=== PATIENT | female | born 1985 | race African-American/Black ===

== ENCOUNTER 2017-02-18 09:08 | Emergency (ER) | payer MEDICAID, OTHER ==
[~2017-02-18] VITALS: Ht 162.6 cm; Wt 104.3 kg
[~2017-02-18 09:08] MED LIST: IBUPROFEN600 MG ORAL; MACROBID100 MG ORAL; NKM; PERCOCET 5-3251 EACH ORAL
[2017-02-18 09:45] LABS: APPEARANCE,URINE CLEAR; KETONES,URINE NEGATIVE (NEGATIVE); LEUKOCYTE ESTERASE ,URINE 1+ (NEGATIVE); NITRITE,URINE NEGATIVE (NEGATIVE); PH,URINE 8 (4.5-8.0); PROTEIN,URINE NEGATIVE (NEGATIVE); UROBILINOGEN,URINE 1 MG/DL (0.0-1.0)
[2017-02-18 10:00] VITALS: BP 92/53
[2017-02-18 10:33] LABS: BACTERIA,URINE FEW /HPF; RBC,URINE 0-2 /HPF (0 - 2); SQUAMOUS EPITHELIAL CELL,UR FEW /LPF (NONE/OCC); WBC,URINE 0-2 /HPF (0 - 2)
[2017-02-18] MEDS ORDERED: ROBAXIN-750750 MG PO (10:37)
[2017-02-18] MEDS ORDERED: IBUPROFEN600 MG ORAL (10:37)
[2017-02-18 10:52] VITALS: BP 103/54
--- NOTE | 2017-02-21 15:04 | Emergency Room Report ---
History of Present Illness General Chief Complaint: Back Pain-No Injury Source: Patient Present Illness HPI Patient presents with complaints of low back pain Reports that started 3 days ago She doesn't recall anything that started the pain Doesn't recall any trauma Denies any fevers or chills denies any dysuria frequency She feels the pain is worse when she sits to drive or tried to stand up Points to across her lower back for the discomfort 3 out of 10 Denies any focal weakness Denies any saddle paresthesia Allergies: Coded Allergies: No Known Allergies (Unverified , 04/08/14) Patient History Past Medical History: see triage record Pertinent Family History: none Last Menstrual Period: 01/29/17 Now: No Reviewed Nursing Documentation: PMH: Agreed, PSxH: Agreed Nursing Documentation-PMH Past Medical History: No History, Except For Hx Cancer: No Hx Gastrointestinal Problems: No Hx Neurological Problems: Yes Hx Headaches: Yes Review of Systems All Other Systems: negative except mentioned in HPI Physical Exam Vital Signs Date Time Temp Pulse Resp B/P Pulse Ox O2 Delivery O2 Flow Rate FiO2 02/18/17 09:24 97.9 82 14 92/53 99 Room Air Sp02 EP Interpretation: reviewed, normal General Appearance: well appearing, no apparent distress Head: normocephalic, atraumatic Eyes: bilateral eye EOMI, bilateral eye PERRL ENT: hearing grossly normal, normal pharynx, TMs + canals normal, uvula midline Neck: full range of motion, supple, no meningismus, no bony tend Respiratory: lungs clear, normal breath sounds, no rhonchi, no respiratory distress, no retraction, no accessory muscle use Cardiovascular #1: normal peripheral pulses, regular rate, rhythm, no edema, no gallop, no JVD, no murmur Gastrointestinal: normal bowel sounds, non tender, soft, no mass, no organomegaly, non-distended, no guarding, no hernia, no pulsatile mass, no rebound Genitourinary: no CVA tenderness Musculoskeletal: other - Mild reproducible discomfort paraspinal L3-4. No midline pain, patient ambulatory, leg raising is negative Neurologic: oriented x3, responsive, hot oiler III-XII nml as tested, motor strength/ tone normal, sensory intact Psychiatric: mood/affect normal Skin: normal color, no rash, warm/dry, palpation normal Lymphatic: normal inspection, no adenopathy Medical Decision Making Diagnostic Impression: Primary Impression: Back pain ER Course Multiple differentials considered patient however has a benign neurological exam Benign muscles focal exam Urine sample was clear And given the patient's age and lack of any risk factors close outpatient followup as initially recommended UA negative UA negative Last Vital Signs Date Time Temp Pulse Resp B/P Pulse Ox O2 Delivery O2 Flow Rate FiO2 02/18/17 10:52 97.9 75 14 103/54 99 Room Air Status: improved Disposition: HOME, SELF-CARE Condition: Stable Scripts Methocarbamol* (ROBAXIN-750*) 750 Mg Tablet 750 MG PO TID, #21 TAB 0 Refills Prov: SLOANE TURNER D.O. 02/18/17 Ibuprofen* (MOTRIN*) 600 Mg Tablet 600 MG ORAL Q8H Y for For Pain, #20 TAB 0 Refills Prov: SLOANE TURNER D.O. 02/18/17 Referrals: [facility] (PCP) Patient Instructions: Back Pain, Adult Additional Instructions: Patient is provided with the discharge instructions notified to follow up with primary doctor in the next 2-3 days otherwise return to the er with any worsening symptoms. Please note that this report is being documented using [employer] technology. This can lead to erroneous entry secondary to incorrect interpretation by the dictating instrument. SLOANE TURNER D.O. Feb 21, 2017 15:04
== END 2017-02-18 10:58 | disposition home or self-care (01) ==
LOC: EMR 09:35
DX: M54.5 Low back pain (principal)
CPT/HCPCS: 81003; 81025; 99284

== ENCOUNTER 2017-07-07 10:23 | Inpatient (IN) | payer OTHER ==
[~2017-07-07] VITALS: Ht 162.6 cm; Wt 96.2 kg
[2017-07-07] VITALS (10 sets, daily range): BP systolic 94–139; BP diastolic 56–76
[~2017-07-07 10:23] MED LIST changes: +ROBAXIN-750750 MG PO
--- NOTE | 2017-07-07 10:46 | Emergency Room Report ---
History of Present Illness General Chief Complaint: Nausea, Vomiting, and Diarrhea Source: Patient, Medical Record Present Illness HPI 32-year-old female with no sig pmhx p/w abdominal pain vomiting and diarrhea for one week. Patient states pain started after vomiting, localized to the epigastric area, non radiating, burning in nature, intermittent. No relieving or exacerbating factors. Severity is mild. Pt reports n/v, 2 episodes of nbnb vomiting (occurs every other day), 2 episodes of watery non bloody diarrhea (every other day) Denies fever, chills. No hx of abdominal surgeries. No hx of endoscopies/colonoscopies. no recent travel no recent abx use Patient also stating that she has had heavy periods all her life, about 10 pads per day and bleeding 10 days. Admits to having exertional dyspnea and fatigue. Not on any control pills Allergies: Coded Allergies: No Known Allergies (Unverified , 04/08/14) Patient History Past Medical History: see triage record Past Surgical History: none Pertinent Family History: none Last Menstrual Period: 07/01/17 Reviewed Nursing Documentation: PMH: Agreed, PSxH: Agreed Nursing Documentation-PMH Past Medical History: No History, Except For Hx Cancer: No Hx Gastrointestinal Problems: No Hx Neurological Problems: Yes Hx Headaches: Yes Review of Systems All Other Systems: negative except mentioned in HPI Physical Exam Vital Signs Date Time Temp Pulse Resp B/P (MAP) Pulse Ox O2 Delivery O2 Flow Rate FiO2 07/07/17 10:27 98.4 77 18 114/76 100 Room Air Sp02 EP Interpretation: reviewed, normal General Appearance: normal inspection, well appearing, no apparent distress, alert, GCS 15, non-toxic Head: normocephalic, atraumatic Eyes: bilateral eye normal inspection, bilateral eye PERRL, bilateral eye EOMI ENT: normal ENT inspection, normal pharynx, normal voice, moist mucus membranes Neck: normal inspection, full range of motion, supple Respiratory: normal inspection, lungs clear, normal breath sounds, no respiratory distress, no retraction, no wheezing, speaking full sentences, chest symmetrical Cardiovascular #1: normal inspection, regular rate, rhythm, no edema, normal capillary refill Cardiovascular #2: 2+ radial (R), 2+ radial (L) Gastrointestinal: soft, non-distended, no guarding, other - mild epigastric tenderness no guarding Musculoskeletal: normal inspection, back normal, normal range of motion, non- tender Neurologic: normal inspection, alert, oriented x3, responsive, motor strength/ tone normal, sensory intact, normal gait, speech normal Psychiatric: normal inspection, judgement/insight normal, memory normal Skin: normal inspection, normal color, no rash, warm/dry, well hydrated, normal turgor Medical Decision Making Diagnostic Impression: Primary Impression: Nausea, vomiting, and diarrhea Additional Impressions: Menorrhagia Symptomatic anemia ER Course 32-year-old female with abdominal pain nausea vomiting diarrhea Differential Diagnosis: Gastritis, gastroenteritis, cholecystitis, appendicitis, diverticulitis, TI/ pyelo At this time abdomen is soft nontender aside from epigastric area, not likely to have acute intra-abdominal surgical pathology, will hold CT for now. Plan: Basic labs, ua, Pepcid, maalox, pain control, IVF ER course: Patient has remained stable during ED stay. Repeat abdominal exam is nontender. Tolerating PO Pt noted to have low h/h, also admits to dyspnea/fatigue/menorrhagia with xfused 2 units first unit started in ED admit to obs Disposition: Pt will be xferred to other [facility] for insurance purposes D/W Dr Manzanares, receiving doctor, who has accepted patient Please note that this Emergency Department Report was dictated using [employer] software, occasionally this can lead to erroneous entry secondary to interpretation by the dictation equipment Laboratory Tests Test 07/07/17 10:50 White Blood Count 5.9 K/UL (4.8-10.8) Red Blood Count 4.36 M/UL (4.20-5.40) Hemoglobin 6.6 G/DL (12.0-16.0) *L Hematocrit 23.8 % (37.0-47.0) L Mean Corpuscular Volume 55 FL (80-99) L Mean Corpuscular Hemoglobin 15.2 PG (27.0-31.0) L Mean Corpuscular Hemoglobin Concent 27.8 G/DL (32.0-36.0) L Red Cell Distribution Width 16.0 % (11.6-14.8) H Platelet Count 493 K/UL (150-450) H Mean Platelet Volume 6.6 FL (6.5-10.1) Neutrophils (%) (Auto) % (45.0-75.0) Lymphocytes (%) (Auto) % (20.0-45.0) Monocytes (%) (Auto) % (1.0-10.0) Eosinophils (%) (Auto) % (0.0-3.0) Basophils (%) (Auto) % (0.0-2.0) Differential Total Cells Counted 100 Neutrophils % (Manual) 62 % (45-75) Lymphocytes % (Manual) 23 % (20-45) Monocytes % (Manual) 11 % (1-10) H Eosinophils % (Manual) 4 % (0-3) H Basophils % (Manual) 0 % (0-2) Band Neutrophils 0 % (0-8) Platelet Estimate Adequate Platelet Morphology Normal Hypochromasia 2+ Anisocytosis 1+ Microcytosis 3+ Urine Color Pale yellow Urine Appearance Clear Urine pH 6 (4.5-8.0) Urine Specific [place] 1.010 (1.005-1.035) Urine Protein Negative (NEGATIVE) Urine Glucose (UA) Negative (NEGATIVE) Urine Ketones Negative (NEGATIVE) Urine Occult Blood 1+ (NEGATIVE) H Urine Nitrite Negative (NEGATIVE) Urine Bilirubin Negative (NEGATIVE) Urine Urobilinogen Normal MG/DL (0.0-1.0) Urine Leukocyte Esterase 1+ (NEGATIVE) H Urine RBC 0-2 /HPF (0 - 2) Urine WBC 2-4 /HPF (0 - 2) Urine Squamous Epithelial Cells Few /LPF (NONE/OCC) Urine Bacteria Few /HPF (NONE) Urine HCG, Qualitative Negative Sodium Level 138 MMOL/L (136-145) Potassium Level 3.6 MMOL/L (3.5-5.1) Chloride Level 105 MMOL/L (98-107) Carbon Dioxide Level 23 MMOL/L (21-32) Anion Gap 10 mmol/L (5-15) Blood Urea Nitrogen 4 mg/dL (7-18) L Creatinine 0.8 MG/DL (0.55-1.30) Estimate Glomerular Filtration Rate > 60 mL/min (>60) Glucose Level 87 MG/DL (74-106) Calcium Level 9.3 MG/DL (8.5-10.1) Total Bilirubin 0.4 MG/DL (0.2-1.0) Aspartate Amino Transferase (AST) 13 U/L (15-37) L Alanine Aminotransferase (ALT) 13 U/L (12-78) Alkaline Phosphatase 58 U/L (46-116) Total Protein 7.9 G/DL (6.4-8.2) Albumin 3.8 G/DL (3.4-5.0) Globulin 4.1 g/dL Albumin/Globulin Ratio 0.9 (1.0-2.7) L Lipase 116 U/L (73-393) Last Vital Signs Date Time Temp Pulse Resp B/P (MAP) Pulse Ox O2 Delivery O2 Flow Rate FiO2 07/07/17 10:27 98.4 77 18 114/76 100 Room Air Disposition: XFER [facility] Condition: Serious RetinoLuther M.D. Jul 07, 2017 10:46
[2017-07-07] MEDS ORDERED: Dicyclomine HCl 10mg/5ml oral soln ORAL ONE (11:00)
[2017-07-07] MEDS ORDERED: Lidocaine 2% Visc 15ml soln ORAL ONE (11:00)
[2017-07-07] MEDS ORDERED: Mylanta II UD 30ml ORAL ONE (11:00)
[2017-07-07 11:08] LABS: APPEARANCE,URINE CLEAR; KETONES,URINE NEGATIVE (NEGATIVE); LEUKOCYTE ESTERASE ,URINE 1+ (NEGATIVE); MEAN CORPUSCULAR HEMOGLOBIN 15.2 PG (27.0-31.0); MEAN CORPUSCULAR HGB CONC 27.8 G/DL (32.0-36.0); MEAN CORPUSCULAR VOLUME 55 FL (80-99); MEAN PLATELET VOLUME 6.6 FL (6.5-10.1); NITRITE,URINE NEGATIVE (NEGATIVE); PH,URINE 6 (4.5-8.0); PLATELET COUNT 493 K/UL (150-450); PROTEIN,URINE NEGATIVE (NEGATIVE); RED BLOOD COUNT 4.36 M/UL (4.20-5.40); UROBILINOGEN,URINE NORMAL MG/DL (0.0-1.0); WHITE BLOOD COUNT 5.9 K/UL (4.8-10.8)
[2017-07-07 11:13] LABS: BACTERIA,URINE FEW /HPF; RBC,URINE 0-2 /HPF (0 - 2); SQUAMOUS EPITHELIAL CELL,UR FEW /LPF (NONE/OCC)
[2017-07-07 11:30] LABS: ALANINE AMINOTRANSFERASE 13 U/L (12-78); ALBUMIN/GLOBULIN RATIO 0.9 (1.0-2.7); ANION GAP 10 mmol/L (5-15); ASPARTATE AMINO TRANSFERASE 13 U/L (15-37); CALCIUM 9.3 MG/DL (8.5-10.1); CARBON DIOXIDE 23 MMOL/L (21-32); CHLORIDE 105 MMOL/L (98-107); CREATININE 0.8 MG/DL (0.55-1.30); GLOMERULAR FILTRATION RATE > 60 mL/min (>60); LIPASE 116 U/L (73-393); POTASSIUM 3.6 MMOL/L (3.5-5.1); SODIUM 138 MMOL/L (136-145); TOTAL PROTEIN 7.9 G/DL (6.4-8.2)
[2017-07-07 12:02] LABS: BAND NEUTROPHILS % (MANUAL) 0 % (0-8); BASOPHILS % (MANUAL) 0 % (0-2); EOSINOPHILS % (MANUAL) 4 % (0-3); LYMPHOCYTES % (MANUAL) 23 % (20-45); NEUTROPHILS % (MANUAL) 62 % (45-75); PLATELET ESTIMATE ADEQUATE; TOTAL CELLS COUNTED 100
[2017-07-07 12:03] LABS: ANISOCYTOSIS 1+; HYPOCHROMASIA 2+; MICROCYTES 3+; PLATELET MORPHOLOGY NORMAL
[2017-07-07] MEDS ORDERED: Ketorolac 30mg Inj IV ONE (16:45)
[2017-07-07] MEDS ORDERED: Mylanta II UD 30ml ORAL PRN (21:30)
[2017-07-07] MEDS ORDERED: Zolpidem 5mg tab ORAL PRN (21:30)
[2017-07-07] MEDS ORDERED: Miralax 17gm pkt ORAL PRN (21:30)
[2017-07-08] VITALS: BP 132/75
[2017-07-08 00:11] LABS: LACTATE DEHYDROGENASE 188 U/L (81-234)
[2017-07-08 00:20] LABS: PROTHROMBIN TIME 10.8 SEC (9.30-11.50)
[2017-07-08 00:25] LABS: PATH BLOOD SMEAR/OMC SENT TO PATHOLOGIST
[2017-07-08 00:42] LABS: FOLIC ACID 11.8 NG/ML (3.1-17.5); IRON 6 ug/dL (50-175); TOTAL IRON BINDING CAPACITY 371 ug/dL (250-450)
[2017-07-08 01:29] LABS: ERYTHROCYTE SEDIMENTATION RATE 35 MM/HR (0-20)
[2017-07-08 04:45] VITALS: BP 127/69
[2017-07-08 08:00] VITALS: BP 134/77
[2017-07-08 08:58] LABS: BASOPHILS % (AUTO) 2.7 % (0.0-2.0); LYMPHOCYTES % (AUTO) 16.6 % (20.0-45.0); MEAN CORPUSCULAR HEMOGLOBIN 18.4 PG (27.0-31.0); MEAN CORPUSCULAR HGB CONC 30.3 G/DL (32.0-36.0); MEAN CORPUSCULAR VOLUME 61 FL (80-99); MEAN PLATELET VOLUME 6.4 FL (6.5-10.1); MONOCYTES % (AUTO) 13.1 % (1.0-10.0); NEUTROPHILS % (AUTO) 63.6 % (45.0-75.0); PLATELET COUNT 464 K/UL (150-450); RED BLOOD COUNT 4.87 M/UL (4.20-5.40); RED CELL DISTRIBUTION WIDTH 25.4 % (11.6-14.8); WHITE BLOOD COUNT 7.4 K/UL (4.8-10.8)
[2017-07-08 09:50] LABS: OTHERS PATHOLOGIST COMMENT
[2017-07-08 10:18] LABS: ALANINE AMINOTRANSFERASE 15 U/L (12-78); ANION GAP 8 mmol/L (5-15); ASPARTATE AMINO TRANSFERASE 14 U/L (15-37); CALCIUM 9.1 MG/DL (8.5-10.1); CARBON DIOXIDE 26 MMOL/L (21-32); CHLORIDE 104 MMOL/L (98-107); CREATININE 0.8 MG/DL (0.55-1.30); GLOMERULAR FILTRATION RATE > 60 mL/min (>60); POTASSIUM 3.5 MMOL/L (3.5-5.1); SODIUM 138 MMOL/L (136-145); THYROID STIMULATING HORMONE 1.885 uiU/mL (0.360-3.740); TOTAL PROTEIN 7.5 G/DL (6.4-8.2)
--- NOTE | 2017-07-08 11:42 | History and Physical ---
History of Present Illness General Date patient seen: Jul 08, 2017 Time patient seen: 10:00 Reason for Hospitalization: Nausea, Vomiting, and Diarrhea Present Illness HPI 32 y/old female with 1 week of foul smelling, dark color diarrhea, no alejandrina blood, + vomiting, no hematemesis, yellow color unable to keep food and water down + abdominal cramps no fevers, chills No hx of abdominal surgeries. No hx of endoscopies/colonoscopies. no recent travel no recent abx use doubt any food poisoning, no recent sick contacts Patient also reported heavy periods all her life, about 10 pads per day and bleeding 10 days. reported exertional dyspnea and fatigue. Not on any control pills engaged, 4 children smokes marijuana daily workup in ED revealed HH-6.6/23.8 with MCV 55 VSS no fever, pulse oz stable on RA no leukocytosis , stable lytes, LFT urine test negative LMP -07/01/17 patient admitted for blood transfusion and further management Allergies: Coded Allergies: No Known Allergies (Unverified , 04/08/14) Medication History Scheduled Methocarbamol* (Robaxin-750*), 750 MG PO TID Nitrofurantoin Monohyd/M-Cryst (Nitrofurantoin [place]-Mcr 100 mg), 100 MG ORAL Q12H No Known Medications* (NKM - No Known Medications*), 0 ., (Reported) Scheduled PRN Ibuprofen* (Motrin*), 600 MG ORAL Q6H PRN for For Pain, (Reported) Ibuprofen* (Motrin*), 600 MG ORAL Q8H PRN for For Pain Oxycodone/Acetaminophen 5-325* (Percocet 5-325 Mg Tablet*), 1 TAB ORAL Q6H PRN for For Pain, (Reported) Patient History Healthcare decision maker N Resuscitation status Full Code Advanced Directive on File Review of Systems Constitutional: Reports: no symptoms ENT: Reports: no symptoms Respiratory: Reports: no symptoms Cardiovascular: Reports: no symptoms Gastrointestinal: Reports: see HPI Genitourinary: Reports: see HPI Musculoskeletal: Reports: no symptoms Skin: Reports: no symptoms Psychiatric: Reports: no symptoms Neurological: Reports: no symptoms Endocrine: Reports: no symptoms Physical Exam General Appearance: WD/WN, no apparent distress, alert, obese Lines, tubes and drains: peripheral HEENT: normocephalic, atraumatic, anicteric, mucous membranes moist, PERRL Neck: non-tender, supple Respiratory/Chest: chest wall non-tender, lungs clear, normal breath sounds, no respiratory distress, no accessory muscle use Cardiovascular/Chest: normal peripheral pulses, normal rate Abdomen: non tender - obese, soft Extremities: normal range of motion, non-tender, no calf tenderness, normal capillary refill Skin Exam: warm/dry Neurologic: glass deposition tender II-XII grossly normal, no motor/sensory deficits, alert, oriented x 3, responsive Musculoskeletal: normal muscle bulk Last 24 Hour Vital Signs Date Time Temp Pulse Resp B/P (MAP) Pulse Ox O2 Delivery O2 Flow Rate FiO2 07/08/17 04:45 97.9 60 18 127/69 100 Room Air 07/08/17 00:00 98.2 60 18 132/75 99 Room Air 07/07/17 20:50 98.1 69 18 139/74 98 Room Air 07/07/17 20:20 98.3 58 19 122/64 99 Room Air 07/07/17 20:11 98.3 58 19 122/64 99 Room Air 07/07/17 18:10 98.5 63 16 126/75 99 Room Air 07/07/17 15:48 98.3 74 16 103/61 100 Room Air 07/07/17 15:33 98.3 70 18 111/65 100 Room Air 07/07/17 15:33 98.3 70 18 07/07/17 15:22 98.2 76 16 94/70 100 Room Air 07/07/17 14:40 98.2 66 16 125/68 100 Room Air 07/07/17 13:28 98.2 64 18 119/64 100 Room Air 07/07/17 12:08 66 18 114/56 100 Room Air Laboratory Tests Test 07/07/17 21:50 07/08/17 07:20 07/08/17 08:20 Erythrocyte Sedimentation Rate 35 MM/HR (0-20) H Reticulocyte Count 2.0 % (0.0-2.0) Prothrombin Time 10.8 SEC (9.30-11.50) Prothromb Time International Ratio 1.0 (0.9-1.1) Activated Partial Thromboplast Time 29 SEC (23-33) Iron Level 6 ug/dL (50-175) L Total Iron Binding Capacity 371 ug/dL (250-450) Percent Iron Saturation 2 % (15-50) L Unsaturated Iron Binding 365 ug/dL (112-346) H Lactate Dehydrogenase 188 U/L (81-234) Vitamin B12 Level 529 PG/ML (193-986) Folate 11.8 NG/ML (3.1-17.5) Stool Occult Blood Negative (NEGATIVE) White Blood Count 7.4 K/UL (4.8-10.8) Red Blood Count 4.87 M/UL (4.20-5.40) Hemoglobin 9.0 G/DL (12.0-16.0) #L Hematocrit 29.6 % (37.0-47.0) L Mean Corpuscular Volume 61 FL (80-99) #L Mean Corpuscular Hemoglobin 18.4 PG (27.0-31.0) L Mean Corpuscular Hemoglobin Concent 30.3 G/DL (32.0-36.0) L Red Cell Distribution Width 25.4 % (11.6-14.8) H Platelet Count 464 K/UL (150-450) H Mean Platelet Volume 6.4 FL (6.5-10.1) L Neutrophils (%) (Auto) 63.6 % (45.0-75.0) Lymphocytes (%) (Auto) 16.6 % (20.0-45.0) L Monocytes (%) (Auto) 13.1 % (1.0-10.0) H Eosinophils (%) (Auto) 4.0 % (0.0-3.0) H Basophils (%) (Auto) 2.7 % (0.0-2.0) H Sodium Level 138 MMOL/L (136-145) Potassium Level 3.5 MMOL/L (3.5-5.1) Chloride Level 104 MMOL/L (98-107) Carbon Dioxide Level 26 MMOL/L (21-32) Anion Gap 8 mmol/L (5-15) Blood Urea Nitrogen 8 mg/dL (7-18) Creatinine 0.8 MG/DL (0.55-1.30) Estimat Glomerular Filtration Rate > 60 mL/min (>60) Glucose Level 100 MG/DL (74-106) Calcium Level 9.1 MG/DL (8.5-10.1) Total Bilirubin 0.5 MG/DL (0.2-1.0) Aspartate Amino Transf (AST/SGOT) 14 U/L (15-37) L Alanine Aminotransferase (ALT/SGPT) 15 U/L (12-78) Alkaline Phosphatase 61 U/L (46-116) Total Protein 7.5 G/DL (6.4-8.2) Albumin 3.7 G/DL (3.4-5.0) Globulin 3.8 g/dL Albumin/Globulin Ratio 1.0 (1.0-2.7) Thyroid Stimulating Hormone (TSH) 1.885 uiU/mL (0.360-3.740) Height (Feet): 5 Height (Inches): 4.00 Weight (Pounds): 212 Medications Current Medications Medications (Trade) Dose Ordered Sig/Lilliana Route PRN Reason Start Time Stop Time Status Last Admin Dose Admin Acetaminophen (Tylenol) 650 mg Q4H PRN ORAL fever 07/07/17 21:30 08/06/17 21:29 Al Hydroxide/Mg Hydroxide (Mylanta II) 30 ml Q6H PRN ORAL dyspepsia 07/07/17 21:30 08/06/17 21:29 Dextrose (Dextrose 50%) STAT PRN IV Hypoglycemia 07/07/17 21:30 08/06/17 21:29 Lorazepam (Ativan 2mg/ml 1ml) 0.5 mg Q4H PRN IV For Anxiety 07/07/17 21:30 07/14/17 21:29 Morphine Sulfate (Morphine Sulfate) 1 mg Q4H PRN IVP For Pain Scale 4-10 07/07/17 21:30 07/14/17 21:29 Ondansetron HCl (Zofran) 4 mg Q6H PRN IVP Nausea & Vomiting 07/07/17 21:30 08/06/17 21:29 07/08/17 04:17 Polyethylene Glycol (Miralax) 17 gm HSPRN PRN ORAL Constipation 07/07/17 21:30 08/06/17 21:29 Zolpidem Tartrate (Ambien) 5 mg HSPRN PRN ORAL Insomnia 07/07/17 21:30 07/14/17 21:29 Assessment/Plan Status Narrative ASSESSMENT nausea with vomiting and diarrhea acute symptomatic anemia, requiring blood transfusion iron deficiency anemia obesity daily marijuana user PLAN OF CARE MS floor s/p 2 u PRBC, HH up anemia w/up with evidence of ALLYSON start Venofer check ferritin on dc oral iron supplements IVF diet as tolerated O2 prn GI eval a/emetic prn stool OP, C dif and stool cx with no fever, no leukocytosis, unlikely infectious source of diarrhea, GI prophayxlis stool OB [facility] outpt fup with [employer] case discussed and evaluated by supervising physician Richard Thomas)Abby NP Jul 08, 2017 11:42
[2017-07-08 12:17] VITALS: BP 130/80
[2017-07-08 16:00] VITALS: BP 142/83
--- NOTE | 2017-07-08 17:01 | GI Initial Consult Note ---
History of Present Illness General Date patient seen: Jul 08, 2017 Time patient seen: 16:57 Reason for Hospitalization: Nausea, Vomiting, and Diarrhea Referring physician: CHARLES CALDERON Reason for Consultation: N/V/D Present Illness HPI 32-year-old female with no sig pmhx p/w abdominal pain vomiting and diarrhea for one week. Patient states pain started after vomiting, localized to the epigastric area, non radiating, burning in nature, intermittent. No relieving or exacerbating factors. Severity is mild. Pt reports n/v, 2 episodes of nbnb vomiting (occurs every other day), 2 episodes of watery non bloody diarrhea (every other day) Denies fever, chills. No hx of abdominal surgeries. No hx of endoscopies/colonoscopies. no recent travel no recent abx use Patient also stating that she has had heavy periods all her life, about 10 pads per day and bleeding 10 days. Admits to having exertional dyspnea and fatigue. Not on any control pills. GI consulted for abdominal pain. HPI as noted above. Pt seen on floor, awake A &Ox4 NAD with no active s/sx of N/V/D. States she's been having epigastric pain , multiple episodes to emesis and water diarrhea. Denies any unintentional weight loss or changes in dietary habits. Denies any recent travel. Pt has documented history of thalassemia but is unsure because she has been told she has had thalassemia, sickle cell and iron deficiency. Patient denies tobacco and ETOH use, but is a daily MJ user. Patient also has history of ectopic . She presents today with anemia requiring blood transfusions, iron deficiency. No leukocytosis noted. Lipase, OB stool unremarkable. Home Meds Active Scripts Methocarbamol* (ROBAXIN-750*) 750 Mg Tablet, 750 MG PO TID, #21 TAB 0 Refills Prov:LARSDORSLOANE D.O. 02/18/17 Ibuprofen* (MOTRIN*) 600 Mg Tablet, 600 MG ORAL Q8H Y for For Pain, #20 TAB 0 Refills Prov:LARSDORALI D.O. 02/18/17 Nitrofurantoin Monohyd/M-Cryst (Nitrofurantoin Haskell-Mcr 100 mg) 100 Mg Cap, 100 MG ORAL Q12H, #14 CAP Prov:SLOANE TURNER D.O. 12/12/14 Reported Medications Ibuprofen* (MOTRIN*) 600 Mg Tablet, 600 MG ORAL Q6H Y for For Pain, TAB 04/18/14 Oxycodone/Acetaminophen 5-325* (PERCOCET 5-325 MG TABLET*) 1 Each Tablet, 1 TAB ORAL Q6H Y for For Pain, #30 TAB 0 Refills 04/18/14 No Known Medications* (NKM - No Known Medications*) ., 0 ., 0 Refills 04/16/14 Med list reviewed/reconciled: Yes Allergies: Coded Allergies: No Known Allergies (Unverified , 04/08/14) Patient History History Provided By: Patient, Medical Record PMH Narrative Past Medical History: see triage record Past Surgical History: none Pertinent Family History: none Last Menstrual Period: 07/01/17 Reviewed Nursing Documentation: PMH: Agreed, PSxH: Agreed Nursing Documentation-PM Past Medical History: No History, Except For Hx Cancer: No Hx Gastrointestinal Problems: No Hx Neurological Problems: Yes Hx Headaches: Yes Social History: Reports: drug use - Review of Systems All Other Systems: negative except mentioned in HPI Physical Exam Vital Signs Date Time Temp Pulse Resp B/P (MAP) Pulse Ox O2 Delivery O2 Flow Rate FiO2 07/07/17 10:27 18 114/76 100 Room Air 07/07/17 10:27 98.4 77 Sp02 EP Interpretation: reviewed, normal Labs Laboratory Tests Test 07/07/17 21:50 07/08/17 07:20 07/08/17 08:20 Erythrocyte Sedimentation Rate 35 MM/HR (0-20) H Reticulocyte Count 2.0 % (0.0-2.0) Prothrombin Time 10.8 SEC (9.30-11.50) Prothromb Time International Ratio 1.0 (0.9-1.1) Activated Partial Thromboplast Time 29 SEC (23-33) Iron Level 6 ug/dL (50-175) L Total Iron Binding Capacity 371 ug/dL (250-450) Percent Iron Saturation 2 % (15-50) L Unsaturated Iron Binding 365 ug/dL (112-346) H Lactate Dehydrogenase 188 U/L (81-234) Vitamin B12 Level 529 PG/ML (193-986) Folate 11.8 NG/ML (3.1-17.5) Stool Occult Blood Negative (NEGATIVE) White Blood Count 7.4 K/UL (4.8-10.8) Red Blood Count 4.87 M/UL (4.20-5.40) Hemoglobin 9.0 G/DL (12.0-16.0) #L Hematocrit 29.6 % (37.0-47.0) L Mean Corpuscular Volume 61 FL (80-99) #L Mean Corpuscular Hemoglobin 18.4 PG (27.0-31.0) L Mean Corpuscular Hemoglobin Concent 30.3 G/DL (32.0-36.0) L Red Cell Distribution Width 25.4 % (11.6-14.8) H Platelet Count 464 K/UL (150-450) H Mean Platelet Volume 6.4 FL (6.5-10.1) L Neutrophils (%) (Auto) 63.6 % (45.0-75.0) Lymphocytes (%) (Auto) 16.6 % (20.0-45.0) L Monocytes (%) (Auto) 13.1 % (1.0-10.0) H Eosinophils (%) (Auto) 4.0 % (0.0-3.0) H Basophils (%) (Auto) 2.7 % (0.0-2.0) H Sodium Level 138 MMOL/L (136-145) Potassium Level 3.5 MMOL/L (3.5-5.1) Chloride Level 104 MMOL/L (98-107) Carbon Dioxide Level 26 MMOL/L (21-32) Anion Gap 8 mmol/L (5-15) Blood Urea Nitrogen 8 mg/dL (7-18) Creatinine 0.8 MG/DL (0.55-1.30) Estimat Glomerular Filtration Rate > 60 mL/min (>60) Glucose Level 100 MG/DL (74-106) Calcium Level 9.1 MG/DL (8.5-10.1) Total Bilirubin 0.5 MG/DL (0.2-1.0) Aspartate Amino Transf (AST/SGOT) 14 U/L (15-37) L Alanine Aminotransferase (ALT/SGPT) 15 U/L (12-78) Alkaline Phosphatase 61 U/L (46-116) Total Protein 7.5 G/DL (6.4-8.2) Albumin 3.7 G/DL (3.4-5.0) Globulin 3.8 g/dL Albumin/Globulin Ratio 1.0 (1.0-2.7) Thyroid Stimulating Hormone (TSH) 1.885 uiU/mL (0.360-3.740) General Appearance: well appearing, no apparent distress, alert, obese Head: normocephalic EENT: PERRL/EOMI, normal ENT inspection Neck: supple Respiratory: normal breath sounds, no respiratory distress Cardiovascular: normal rate Gastrointestinal: normal inspection, non tender, soft, normal bowel sounds, non -distended Rectal: deferred Genitourinary: no CVA tenderness Musculoskeletal: normal inspection, back normal Neurologic: normal inspection, alert, oriented x3, responsive Psychiatric: normal inspection, judgement/insight normal, memory normal Skin: normal inspection, normal color, no rash, warm/dry, palpation normal, well hydrated Lymphatic: normal inspection, no adenopathy Current Medications Current Medications Medications (Trade) Dose Ordered Sig/Lilliana Route PRN Reason Start Time Stop Time Status Last Admin Dose Admin Acetaminophen (Tylenol) 650 mg Q4H PRN ORAL fever 07/07/17 21:30 08/06/17 21:29 Al Hydroxide/Mg Hydroxide (Mylanta II) 30 ml Q6H PRN ORAL dyspepsia 07/07/17 21:30 08/06/17 21:29 Dextrose (Dextrose 50%) STAT PRN IV Hypoglycemia 07/07/17 21:30 08/06/17 21:29 Iron Sucrose 100 mg/Sodium Chloride 60 ml @ 240 mls/hr ONCE ONCE IV 07/08/17 21:00 07/08/17 21:14 Lorazepam (Ativan 2mg/ml 1ml) 0.5 mg Q4H PRN IV For Anxiety 07/07/17 21:30 07/14/17 21:29 Morphine Sulfate (Morphine Sulfate) 1 mg Q4H PRN IVP For Pain Scale 4-10 07/07/17 21:30 07/14/17 21:29 Ondansetron HCl (Zofran) 4 mg Q6H PRN IVP Nausea & Vomiting 07/07/17 21:30 08/06/17 21:29 07/08/17 04:17 Polyethylene Glycol (Miralax) 17 gm HSPRN PRN ORAL Constipation 07/07/17 21:30 08/06/17 21:29 Ranitidine HCl (Zantac) 150 mg BEDTIME ORAL 07/08/17 21:00 08/07/17 20:59 Sodium Chloride 1,000 ml @ 75 mls/hr [id number] IV 07/08/17 17:00 08/07/17 16:59 07/08/17 16:54 Zolpidem Tartrate (Ambien) 5 mg HSPRN PRN ORAL Insomnia 07/07/17 21:30 07/14/17 21:29 GI: Plan Problems: (1) Iron deficiency (2) Symptomatic anemia (3) Nausea, vomiting, and diarrhea Plan lipase WNL OB stool negative fu AP CT fu cdiff, stool studies, O&P >> ok for Imodium after samples collected fu utox regular diet zofran prn, consider reglan if patient has persistent vomiting monitor H&H, prn transfusions H2B fu labs consider cyclic vomiting syndrom given hx of daily MJ use Discussed with Dr. Urrutia. Thank you for this patient referral, we will follow. Holley Carcamo N.P. Jul 08, 2017 17:01
[2017-07-08] MEDS ORDERED: Loperamide 2mg cap ORAL PRN (17:15)
[2017-07-08] MEDS ORDERED: Metoclopramide 10mg/2ml Inj IVP PRN (19:30)
[2017-07-08 20:00] VITALS: BP 130/83
[2017-07-08] MEDS: Metoclopramide 10mg/2ml Inj IVP PRN (20:14)
[2017-07-08] MEDS: Morphine Sulfate 4mg/ml Inj IVP PRN (20:20)
[2017-07-08] MEDS ORDERED: Iron Sucrose 100 MG in NS 55 ML IV ONE (21:00)
[2017-07-09] VITALS: BP 153/83
[2017-07-09] MEDS: Morphine Sulfate 4mg/ml Inj IVP PRN (00:25)
[2017-07-09] MEDS: LORazepam Inj 2mg/ml 1ml IV PRN ×4 (01:19→20:34)
[2017-07-09 04:00] VITALS: BP 119/63
[2017-07-09 07:29] LABS: BASOPHILS % (AUTO) 0.6 % (0.0-2.0); EOSINOPHILS % (AUTO) 0.8 % (0.0-3.0); LYMPHOCYTES % (AUTO) 16.6 % (20.0-45.0); MEAN CORPUSCULAR HEMOGLOBIN 18.1 PG (27.0-31.0); MEAN CORPUSCULAR HGB CONC 29.9 G/DL (32.0-36.0); MEAN CORPUSCULAR VOLUME 61 FL (80-99); MEAN PLATELET VOLUME 6.9 FL (6.5-10.1); MONOCYTES % (AUTO) 7.8 % (1.0-10.0); NEUTROPHILS % (AUTO) 74.2 % (45.0-75.0); PLATELET COUNT 448 K/UL (150-450); RED BLOOD COUNT 4.69 M/UL (4.20-5.40); RED CELL DISTRIBUTION WIDTH 25.9 % (11.6-14.8); WHITE BLOOD COUNT 8.2 K/UL (4.8-10.8)
[2017-07-09 07:47] LABS: ANION GAP 9 mmol/L (5-15); CALCIUM 9.2 MG/DL (8.5-10.1); CARBON DIOXIDE 26 MMOL/L (21-32); CHLORIDE 107 MMOL/L (98-107); CREATININE 0.8 MG/DL (0.55-1.30); FERRITIN 13 NG/ML (8-388); GLOMERULAR FILTRATION RATE > 60 mL/min (>60); POTASSIUM 3.6 MMOL/L (3.5-5.1); SODIUM 142 MMOL/L (136-145)
--- NOTE | 2017-07-09 08:04 | Pulmonology Progress Note ---
Assessment/Plan Assessment/Plan ASSESSMENT nausea with vomiting and diarrhea acute symptomatic anemia, requiring blood transfusion iron deficiency anemia obesity possible cyclic vomiting syndrome daily marijuana user PLAN OF CARE MS floor s/p 2 u PRBC, HH up anemia w/up with evidence of ALLYSON continue Venofer on dc oral iron supplements IVF GI eval appreciated CT A/P pending diet as tolerated a/emetic prn O2 prn stool OP, and stool cx stool C dif negative with no fever, no leukocytosis, unlikely infectious source of diarrhea, GI prophayxlis stool OB CEA heme eval outpt fup with [employer] FELLOWSHIP not tolerating diet, ? cyclic vomiting syndrome case discussed and evaluated by supervising physician Subjective Allergies: Coded Allergies: No Known Allergies (Unverified , 04/08/14) Subjective not tolerating diet, vomited dinner last night this am only drink water and juice stable patient reported that she was told in the past she had sickle cell or thalassemia Objective Last 24 Hour Vital Signs Date Time Temp Pulse Resp B/P (MAP) Pulse Ox O2 Delivery O2 Flow Rate FiO2 07/09/17 04:00 97.5 50 21 119/63 100 Room Air 07/09/17 00:00 97.9 58 20 153/83 100 Room Air 07/08/17 20:00 97.3 59 20 130/83 100 Room Air 07/08/17 16:00 98.8 69 16 142/83 100 07/08/17 12:17 97.7 56 20 130/80 100 Room Air Objective General Appearance: WD/WN, no apparent distress, alert, obese Lines, tubes and drains: peripheral HEENT: normocephalic, atraumatic, anicteric, mucous membranes moist, PERRL Neck: non-tender, supple Respiratory/Chest: chest wall non-tender, lungs clear, normal breath sounds, no respiratory distress, no accessory muscle use Cardiovascular/Chest: normal peripheral pulses, normal rate Abdomen: non tender, obese, soft Extremities: normal range of motion, non-tender, no calf tenderness, normal capillary refill Skin Exam: warm/dry 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, no motor/sensory deficits, alert, oriented x 3, responsive Musculoskeletal: normal muscle bulk Microbiology Date/Time Source Procedure Growth Status 07/08/17 07:20 Stool Clostridium difficile Toxin Assay - Final Complete Laboratory Tests 07/08/17 08:20: White Blood Count 7.4, Red Blood Count 4.87, Hemoglobin 9.0#L, Hematocrit 29.6L , Mean Corpuscular Volume 61#L, Mean Corpuscular Hemoglobin 18.4L, Mean Corpuscular Hemoglobin Concent 30.3L, Red Cell Distribution Width 25.4H, Platelet Count 464H, Mean Platelet Volume 6.4L, Neutrophils (%) (Auto) 63.6, Lymphocytes (%) (Auto) 16.6L, Monocytes (%) (Auto) 13.1H, Eosinophils (%) (Auto ) 4.0H, Basophils (%) (Auto) 2.7H, Sickle Cell Screen [Pending], Hemoglobin A [ Pending], Hemoglobin A2 [Pending], Hemoglobin C [Pending], Hemoglobin F () [Pending], Hemoglobin S [Pending], Variant Hemoglobin [Pending], Hemoglobin Electrophoresis Interp [Pending], Hemoglobin Interpretation [Pending], Hemoglobin Solubility [Pending], Sodium Level 138, Potassium Level 3.5, Chloride Level 104, Carbon Dioxide Level 26, Anion Gap 8, Blood Urea Nitrogen 8 , Creatinine 0.8, Estimat Glomerular Filtration Rate > 60, Glucose Level 100, Calcium Level 9.1, Total Bilirubin 0.5, Aspartate Amino Transf (AST/SGOT) 14L, Alanine Aminotransferase (ALT/SGPT) 15, Alkaline Phosphatase 61, Total Protein 7.5, Albumin 3.7, Globulin 3.8, Albumin/Globulin Ratio 1.0, Thyroid Stimulating Hormone (TSH) 1.885 07/08/17 23:30: Stool Occult Blood [Pending] 07/09/17 05:10: White Blood Count 8.2, Red Blood Count 4.69, Hemoglobin 8.5L, Hematocrit 28.5L, Mean Corpuscular Volume 61L, Mean Corpuscular Hemoglobin 18.1L, Mean Corpuscular Hemoglobin Concent 29.9L, Red Cell Distribution Width 25.9H, Platelet Count 448, Mean Platelet Volume 6.9, Neutrophils (%) (Auto) 74.2, Lymphocytes (%) (Auto) 16.6L, Monocytes (%) (Auto) 7.8, Eosinophils (%) (Auto) 0.8, Basophils (%) (Auto) 0.6, Sodium Level 142, Potassium Level 3.6, Chloride Level 107, Carbon Dioxide Level 26, Anion Gap 9, Blood Urea Nitrogen 5L, Creatinine 0.8, Estimat Glomerular Filtration Rate > 60, Glucose Level 80, Calcium Level 9.2, Ferritin 13 Current Medications Medications (Trade) Dose Ordered Sig/Lilliana Route PRN Reason Start Time Stop Time Status Last Admin Dose Admin Acetaminophen (Tylenol) 650 mg Q4H PRN ORAL fever 07/07/17 21:30 08/06/17 21:29 Al Hydroxide/Mg Hydroxide (Mylanta II) 30 ml Q6H PRN ORAL dyspepsia 07/07/17 21:30 08/06/17 21:29 Dextrose (Dextrose 50%) STAT PRN IV Hypoglycemia 07/07/17 21:30 08/06/17 21:29 Loperamide HCl (Imodium) 2 mg Q4H PRN ORAL Diarrhea 07/08/17 17:15 08/07/17 17:14 Lorazepam (Ativan 2mg/ml 1ml) 0.5 mg Q4H PRN IV For Anxiety 07/07/17 21:30 07/14/17 21:29 07/09/17 01:19 Metoclopramide HCl (Reglan) 5 mg Q8H PRN IVP Nausea & Vomiting 07/08/17 19:30 08/07/17 19:29 07/08/17 20:14 Morphine Sulfate (Morphine Sulfate) 1 mg Q4H PRN IVP For Pain Scale 4-10 07/07/17 21:30 07/14/17 21:29 07/09/17 00:25 Ondansetron HCl (Zofran) 4 mg Q6H PRN IVP Nausea & Vomiting 07/07/17 21:30 08/06/17 21:29 07/08/17 23:43 Polyethylene Glycol (Miralax) 17 gm HSPRN PRN ORAL Constipation 07/07/17 21:30 08/06/17 21:29 Ranitidine HCl (Zantac) 150 mg BEDTIME ORAL 07/08/17 21:00 08/07/17 20:59 07/08/17 20:15 Sodium Chloride 1,000 ml @ 75 mls/hr [id number] IV 07/08/17 17:00 08/07/17 16:59 07/09/17 06:33 Zolpidem Tartrate (Ambien) 5 mg HSPRN PRN ORAL Insomnia 07/07/17 21:30 07/14/17 21:29 Richard (Lanliliana)Abby NP Jul 09, 2017 08:04
[2017-07-09 08:43] VITALS: BP 127/67
[2017-07-09] MEDS ORDERED: Iron Sucrose 100 MG in NS 55 ML IV ONE (09:00)
[2017-07-09] MEDS ORDERED: Tubing IV Secondary IV ONE (09:19)
[2017-07-09] MEDS: Metoclopramide 10mg/2ml Inj IVP PRN (10:39)
[2017-07-09 11:27] VITALS: BP 124/69
--- NOTE | 2017-07-09 11:48 | Diagnostic Imaging Report ---
Indication: Abdominal pain Technique: Continuous helical transaxial imaging of the abdomen and pelvis was obtained from the lung bases to the pubic symphysis during intravenous contrast administration. Coronal 2-D reformats were also obtained. Study obtained in a Siemens sensation [address] Total Dose length Product (DLP): [address] Dose Index Volume (CTDIvol): 0.15, 18.16 mGy Comparison: None Findings: The lung bases are clear. The spleen is globular and somewhat prominent measuring 13 x 8 cm on transaxial images. The liver is unremarkable. Gallbladder unremarkable. High density foci noted centrally within both kidneys. This is probably early contrast opacification of the collecting system rather than nonobstructive stones. Uterus and ovaries are grossly unremarkable. Urinary bladder is nondistended. Normal appendix noted. No free fluid or free air identified. Pancreas is unremarkable. Impression: No acute findings Prominent, globular appearing spleen. The CT scanner at [facility] is accredited by the [employer] and the scans are performed using dose optimization techniques as appropriate to a performed exam including Automatic Exposure control.
[2017-07-09 16:06] VITALS: BP 143/87
--- NOTE | 2017-07-09 18:33 | General Progress Note ---
Assessment/Plan Assessment/Plan Assessment - abd pain - diarrhea - Anemia - negative CT Recommendations - PO as tolerated - f/u stool w/u - watch off of abx Subjective Allergies: Coded Allergies: No Known Allergies (Unverified , 04/08/14) Subjective resting NAD some abd pain no BRBPR Objective Last 24 Hour Vital Signs Date Time Temp Pulse Resp B/P (MAP) Pulse Ox O2 Delivery O2 Flow Rate FiO2 07/09/17 16:06 97.8 65 19 143/87 98 Room Air 07/09/17 11:27 97.6 51 19 124/69 99 Room Air 07/09/17 08:43 97.0 52 19 127/67 100 Room Air 07/09/17 04:00 97.5 50 21 119/63 100 Room Air 07/09/17 00:00 97.9 58 20 153/83 100 Room Air 07/08/17 20:00 97.3 59 20 130/83 100 Room Air Intake and Output 07/09/17 07/10/17 19:00 07:00 Intake Total 200 ml Output Total 550 ml Balance -350 ml Intake Oral 200 ml Output Urine Total 350 ml Emesis 200 ml Laboratory Tests 07/08/17 23:30: Stool Occult Blood [Pending] 07/09/17 05:10: White Blood Count 8.2, Red Blood Count 4.69, Hemoglobin 8.5L, Hematocrit 28.5L, Mean Corpuscular Volume 61L, Mean Corpuscular Hemoglobin 18.1L, Mean Corpuscular Hemoglobin Concent 29.9L, Red Cell Distribution Width 25.9H, Platelet Count 448, Mean Platelet Volume 6.9, Neutrophils (%) (Auto) 74.2, Lymphocytes (%) (Auto) 16.6L, Monocytes (%) (Auto) 7.8, Eosinophils (%) (Auto) 0.8, Basophils (%) (Auto) 0.6, Sodium Level 142, Potassium Level 3.6, Chloride Level 107, Carbon Dioxide Level 26, Anion Gap 9, Blood Urea Nitrogen 5L, Creatinine 0.8, Estimat Glomerular Filtration Rate > 60, Glucose Level 80, Calcium Level 9.2, Ferritin 13 Height (Feet): 5 Height (Inches): 4.00 Weight (Pounds): 212 Objective WDWN AA woman NCAT supple CTA RRR soft NT ND no edema non focal KHORRAMI,PAYMAN Jul 09, 2017 18:33
[2017-07-09 20:00] VITALS: BP 138/84
[2017-07-10] VITALS (13 sets, daily range): BP systolic 112–142; BP diastolic 63–99
[2017-07-10] MEDS: LORazepam Inj 2mg/ml 1ml IV PRN ×3 (02:12→10:35)
[2017-07-10] MEDS: Metoclopramide 10mg/2ml Inj IVP PRN ×2 (04:44→23:42)
[2017-07-10 07:51] LABS: BASOPHILS % (AUTO) 0.4 % (0.0-2.0); EOSINOPHILS % (AUTO) 0.3 % (0.0-3.0); LYMPHOCYTES % (AUTO) 14.1 % (20.0-45.0); MEAN CORPUSCULAR HEMOGLOBIN 18.3 PG (27.0-31.0); MEAN CORPUSCULAR HGB CONC 30.1 G/DL (32.0-36.0); MEAN CORPUSCULAR VOLUME 61 FL (80-99); MEAN PLATELET VOLUME 6.8 FL (6.5-10.1); MONOCYTES % (AUTO) 5.2 % (1.0-10.0); NEUTROPHILS % (AUTO) 80.1 % (45.0-75.0); PLATELET COUNT 543 K/UL (150-450); RED BLOOD COUNT 5.02 M/UL (4.20-5.40); RED CELL DISTRIBUTION WIDTH 26.1 % (11.6-14.8); WHITE BLOOD COUNT 11.7 K/UL (4.8-10.8)
--- NOTE | 2017-07-10 07:54 | Pulmonology Progress Note ---
Assessment/Plan Assessment/Plan ASSESSMENT nausea with vomiting and diarrhea acute symptomatic anemia, requiring blood transfusion iron deficiency anemia obesity possible cyclic vomiting syndrome daily marijuana user menorrhagia s/p mechanical fall PLAN OF CARE MS floor s/p 2 u PRBC, HH up anemia w/up with evidence of ALLYSON continue Venofer on dc oral iron supplements IVF GI follows CT A/P negative diet as tolerated a/emetic prn O2 prn stool OP-pending , get stool cx stool C dif negative with no fever, no leukocytosis, unlikely infectious source of diarrhea, GI prophayxlis stool OB negative heme eval appreciated 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 cyclic vomiting syndrome pain management, judicious use , possibly contributing as well leukocytosis mild, likely reactive, will monitor ADDENDUM at 1110 am: I WAS JUST INFORMED THAT PATIENT FELL WHILE GOING TO THE BATHROOM, PT DENIED LOC, DIZZINESS, BLACKOUT , chest pain, SOB, PRIOR TO FALL After fall declined head trauma /injury, headache, dizziness, nausea, vomiting, . WILL GET CT HEAD STAT case discussed and evaluated by supervising physician Subjective Allergies: Coded Allergies: No Known Allergies (Unverified , 04/08/14) Subjective not tolerating diet, vomited dinner last night still diarrhea not able to keep even liquids, n/v afterwards CT A/P unremarkable Objective Last 24 Hour Vital Signs Date Time Temp Pulse Resp B/P (MAP) Pulse Ox O2 Delivery O2 Flow Rate FiO2 07/10/17 03:54 97.7 55 20 133/99 97 Room Air 07/10/17 00:00 98.2 50 21 112/63 100 Room Air 07/09/17 20:00 98.1 63 20 138/84 99 Room Air 07/09/17 16:06 97.8 65 19 143/87 98 Room Air 07/09/17 11:27 97.6 51 19 124/69 99 Room Air 07/09/17 08:43 97.0 52 19 127/67 100 Room Air Objective General Appearance: WD/WN, no apparent distress, alert, obese Lines, tubes and drains: peripheral HEENT: normocephalic, atraumatic, anicteric, mucous membranes moist, PERRL Neck: non-tender, supple Respiratory/Chest: chest wall non-tender, lungs clear, normal breath sounds, no respiratory distress, no accessory muscle use Cardiovascular/Chest: normal peripheral pulses, normal rate Abdomen: non tender, obese, soft Extremities: normal range of motion, non-tender, no calf tenderness, normal capillary refill Skin Exam: warm/dry 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 normal, no motor/sensory deficits, alert, oriented x 3, responsive Musculoskeletal: normal muscle bulk Microbiology Date/Time Source Procedure Growth Status 07/08/17 07:20 Stool Clostridium difficile Toxin Assay - Final Complete Laboratory Tests 07/10/17 05:10: White Blood Count [Pending], Red Blood Count [Pending], Hemoglobin [Pending], Hematocrit [Pending], Mean Corpuscular Volume [Pending], Mean Corpuscular Hemoglobin [Pending], Mean Corpuscular Hemoglobin Concent [Pending], Red Cell Distribution Width [Pending], Platelet Count [Pending], Mean Platelet Volume [ Pending], Neutrophils (%) (Auto) [Pending], Lymphocytes (%) (Auto) [Pending], Monocytes (%) (Auto) [Pending], Eosinophils (%) (Auto) [Pending], Basophils (%) (Auto) [Pending], Sodium Level [Pending], Potassium Level [Pending], Chloride Level [Pending], Carbon Dioxide Level [Pending], Blood Urea Nitrogen [Pending], Creatinine [Pending], Estimat Glomerular Filtration Rate [Pending], Glucose Level [Pending], Calcium Level [Pending] Current Medications Medications (Trade) Dose Ordered Sig/Lilliana Route PRN Reason Start Time Stop Time Status Last Admin Dose Admin Acetaminophen (Tylenol) 650 mg Q4H PRN ORAL fever 07/07/17 21:30 08/06/17 21:29 Al Hydroxide/Mg Hydroxide (Mylanta II) 30 ml Q6H PRN ORAL dyspepsia 07/07/17 21:30 08/06/17 21:29 Dextrose (Dextrose 50%) STAT PRN IV Hypoglycemia 07/07/17 21:30 08/06/17 21:29 Loperamide HCl (Imodium) 2 mg Q4H PRN ORAL Diarrhea 07/08/17 17:15 08/07/17 17:14 Lorazepam (Ativan 2mg/ml 1ml) 0.5 mg Q4H PRN IV For Anxiety 07/07/17 21:30 07/14/17 21:29 07/10/17 06:12 Metoclopramide HCl (Reglan) 5 mg Q8H PRN IVP Nausea & Vomiting 07/08/17 19:30 08/07/17 19:29 07/10/17 04:44 Morphine Sulfate (Morphine Sulfate) 1 mg Q4H PRN IVP For Pain Scale 4-10 07/07/17 21:30 07/14/17 21:29 07/09/17 00:25 Ondansetron HCl (Zofran) 4 mg Q6H PRN IVP Nausea & Vomiting 07/07/17 21:30 08/06/17 21:29 07/10/17 01:24 Polyethylene Glycol (Miralax) 17 gm HSPRN PRN ORAL Constipation 07/07/17 21:30 08/06/17 21:29 Ranitidine HCl (Zantac) 150 mg BEDTIME ORAL 07/08/17 21:00 08/07/17 20:59 07/09/17 20:33 Sodium Chloride 1,000 ml @ 75 mls/hr [id number] IV 07/08/17 17:00 08/07/17 16:59 07/10/17 01:24 Zolpidem Tartrate (Ambien) 5 mg HSPRN PRN ORAL Insomnia 07/07/17 21:30 07/14/17 21:29 Richard SaulCreed[facility]oor Psychiatric CenterAbby Yanes NP Jul 10, 2017 07:54
[2017-07-10 08:02] LABS: ANION GAP 15 mmol/L (5-15); CALCIUM 9.4 MG/DL (8.5-10.1); CARBON DIOXIDE 23 MMOL/L (21-32); CHLORIDE 105 MMOL/L (98-107); CREATININE 0.8 MG/DL (0.55-1.30); GLOMERULAR FILTRATION RATE > 60 mL/min (>60); POTASSIUM 3.5 MMOL/L (3.5-5.1); SODIUM 143 MMOL/L (136-145)
--- NOTE | 2017-07-10 09:11 | General Progress Note ---
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 Nausea with vomiting and diarrhea acute symptomatic anemia, requiring blood transfusion obesity possible cyclic vomiting syndrome daily marijuana user menorrhagia Subjective Date patient seen: Jul 09, 2017 Constitutional: Reports: no symptoms HEENT: Reports: no symptoms Cardiovascular: Reports: no symptoms Respiratory: Reports: no symptoms Gastrointestinal/Abdominal: Reports: no symptoms Genitourinary: Reports: no symptoms Neurologic/Psychiatric: Reports: no symptoms Endocrine: Reports: no symptoms Hematologic/Lymphatic: Reports: anemia Allergies: Coded Allergies: No Known Allergies (Unverified , 04/08/14) Subjective no evnets, hgb electrophoresis pending Objective Last 24 Hour Vital Signs Date Time Temp Pulse Resp B/P (MAP) Pulse Ox O2 Delivery O2 Flow Rate FiO2 07/10/17 08:16 98.2 56 19 116/68 100 Room Air 07/10/17 03:54 97.7 55 20 133/99 97 Room Air 07/10/17 00:00 98.2 50 21 112/63 100 Room Air 07/09/17 20:00 98.1 63 20 138/84 99 Room Air 07/09/17 16:06 97.8 65 19 143/87 98 Room Air 07/09/17 11:27 97.6 51 19 124/69 99 Room Air Laboratory Tests 07/10/17 05:10: White Blood Count 11.7H, Red Blood Count 5.02, Hemoglobin 9.2L, Hematocrit 30.5L , Mean Corpuscular Volume 61L, Mean Corpuscular Hemoglobin 18.3L, Mean Corpuscular Hemoglobin Concent 30.1L, Red Cell Distribution Width 26.1H, Platelet Count 543H, Mean Platelet Volume 6.8, Neutrophils (%) (Auto) 80.1H, Lymphocytes (%) (Auto) 14.1L, Monocytes (%) (Auto) 5.2, Eosinophils (%) (Auto) 0.3, Basophils (%) (Auto) 0.4, Sodium Level 143, Potassium Level 3.5, Chloride Level 105, Carbon Dioxide Level 23, Anion Gap 15, Blood Urea Nitrogen 3L, Creatinine 0.8, Estimat Glomerular Filtration Rate > 60, Glucose Level 75, Calcium Level 9.4 Height (Feet): 5 Height (Inches): 4.00 Weight (Pounds): 212 General Appearance: alert EENT: normal ENT inspection Neck: supple Cardiovascular: regular rhythm Respiratory/Chest: lungs clear Abdomen: soft Pelvis: no masses Edema: 1+ Leg (L), 1+ Leg (R) Edema: mild edema Neurologic: abnormal gait Skin: normal pigmentation SHREYA SANTOS Jul 10, 2017 09:11
--- NOTE | 2017-07-10 09:47 | Diagnostic Imaging Report ---
APPROVED REPORT CPT Code: 22166 Present Symptoms Comments: R/O DVT BILATERAL: Imaging reveals a patent deep venous system bilaterally. There is no evidence of thrombus within the femoral, popliteal or tibial segments. The greater saphenous veins are also within normal limits. Doppler indicates normal spontaneous flow within these segments.
--- NOTE | 2017-07-10 20:18 | General Progress Note ---
Assessment/Plan Assessment/Plan Assessment - abd pain - diarrhea - Anemia, iron deficient - negative CT Recommendations - PO as tolerated - check stool Cx, O&P - check Beta HCG Subjective Allergies: Coded Allergies: No Known Allergies (Unverified , 04/08/14) Subjective c/o N/V got ativan shortly afterwards slumped to floor on way to BR no injuries walked back to bed some abd pain OB (-) stools Objective Last 24 Hour Vital Signs Date Time Temp Pulse Resp B/P (MAP) Pulse Ox O2 Delivery O2 Flow Rate FiO2 07/10/17 16:10 97.9 63 19 142/78 98 Room Air 07/10/17 12:50 98.1 60 19 135/70 99 Room Air 07/10/17 12:20 98.2 62 20 136/69 100 Room Air 07/10/17 11:50 98.2 56 20 141/75 100 Room Air 07/10/17 11:26 98.0 59 19 139/77 99 Room Air 07/10/17 11:20 97.9 57 20 133/99 97 Room Air 07/10/17 11:05 97.7 56 19 130/90 98 Room Air 07/10/17 10:50 97.9 58 20 134/89 97 Room Air 07/10/17 10:35 98.0 59 19 139/77 99 Room Air 07/10/17 08:16 98.2 56 19 116/68 100 Room Air 07/10/17 03:54 97.7 55 20 133/99 97 Room Air 07/10/17 00:00 98.2 50 21 112/63 100 Room Air Intake and Output 07/10/17 07/11/17 19:00 07:00 Intake Total 1150 ml Output Total 760 ml Balance 390 ml Intake Oral 400 ml IV Total 750 ml Output Urine Total 360 ml Emesis 400 ml Laboratory Tests 07/10/17 05:10: White Blood Count 11.7H, Red Blood Count 5.02, Hemoglobin 9.2L, Hematocrit 30.5L , Mean Corpuscular Volume 61L, Mean Corpuscular Hemoglobin 18.3L, Mean Corpuscular Hemoglobin Concent 30.1L, Red Cell Distribution Width 26.1H, Platelet Count 543H, Mean Platelet Volume 6.8, Neutrophils (%) (Auto) 80.1H, Lymphocytes (%) (Auto) 14.1L, Monocytes (%) (Auto) 5.2, Eosinophils (%) (Auto) 0.3, Basophils (%) (Auto) 0.4, Sodium Level 143, Potassium Level 3.5, Chloride Level 105, Carbon Dioxide Level 23, Anion Gap 15, Blood Urea Nitrogen 3L, Creatinine 0.8, Estimat Glomerular Filtration Rate > 60, Glucose Level 75, Calcium Level 9.4 Height (Feet): 5 Height (Inches): 4.00 Weight (Pounds): 212 Objective WDWN AA woman NCAT supple CTA RRR soft NT ND no edema non focal PEG RODRÍGUEZ Jul 10, 2017 20:18
--- NOTE | 2017-07-10 22:54 | General Progress Note ---
Assessment/Plan Assessment/Plan Assessment and Recs Anemia 2/2 severe iron deficiency -- on venofer --> hgb goal is >7 --> hgb electrophoresis and ss trait pending Anemia 2/2 severe menorrhagia --> urogynecology physician eval as outpatient Nausea with vomiting and diarrhea acute symptomatic anemia, requiring blood transfusion obesity possible cyclic vomiting syndrome daily marijuana user menorrhagia Subjective Constitutional: Reports: malaise, weakness HEENT: Reports: no symptoms Cardiovascular: Reports: no symptoms Respiratory: Reports: no symptoms Gastrointestinal/Abdominal: Reports: nausea, vomiting Neurologic/Psychiatric: Reports: no symptoms Endocrine: Reports: no symptoms Hematologic/Lymphatic: Reports: anemia Allergies: Coded Allergies: No Known Allergies (Unverified , 04/08/14) Subjective , hgb electrophoresis pending Objective Last 24 Hour Vital Signs Date Time Temp Pulse Resp B/P (MAP) Pulse Ox O2 Delivery O2 Flow Rate FiO2 07/10/17 20:00 97.0 68 20 141/91 100 Room Air 07/10/17 16:10 97.9 63 19 142/78 98 Room Air 07/10/17 12:50 98.1 60 19 135/70 99 Room Air 07/10/17 12:20 98.2 62 20 136/69 100 Room Air 07/10/17 11:50 98.2 56 20 141/75 100 Room Air 07/10/17 11:26 98.0 59 19 139/77 99 Room Air 07/10/17 11:20 97.9 57 20 133/99 97 Room Air 07/10/17 11:05 97.7 56 19 130/90 98 Room Air 07/10/17 10:50 97.9 58 20 134/89 97 Room Air 07/10/17 10:35 98.0 59 19 139/77 99 Room Air 07/10/17 08:16 98.2 56 19 116/68 100 Room Air 07/10/17 03:54 97.7 55 20 133/99 97 Room Air 07/10/17 00:00 98.2 50 21 112/63 100 Room Air Intake and Output 07/10/17 07/11/17 19:00 07:00 Intake Total 1150 ml 300 ml Output Total 760 ml Balance 390 ml 300 ml Intake Oral 400 ml IV Total 750 ml 300 ml Output Urine Total 360 ml Emesis 400 ml Laboratory Tests 10/22/17 05:10: White Blood Count 11.7H, Red Blood Count 5.02, Hemoglobin 9.2L, Hematocrit 30.5L , Mean Corpuscular Volume 61L, Mean Corpuscular Hemoglobin 18.3L, Mean Corpuscular Hemoglobin Concent 30.1L, Red Cell Distribution Width 26.1H, Platelet Count 543H, Mean Platelet Volume 6.8, Neutrophils (%) (Auto) 80.1H, Lymphocytes (%) (Auto) 14.1L, Monocytes (%) (Auto) 5.2, Eosinophils (%) (Auto) 0.3, Basophils (%) (Auto) 0.4, Sodium Level 143, Potassium Level 3.5, Chloride Level 105, Carbon Dioxide Level 23, Anion Gap 15, Blood Urea Nitrogen 3L, Creatinine 0.8, Estimat Glomerular Filtration Rate > 60, Glucose Level 75, Calcium Level 9.4 Height (Feet): 5 Height (Inches): 4.00 Weight (Pounds): 212 General Appearance: no apparent distress EENT: normal ENT inspection Neck: normal alignment Cardiovascular: no gallop/murmur Abdomen: no organomegaly Skin: warm/dry SHREYA SANTOS Jul 10, 2017 22:54
[2017-07-10] MEDS: Morphine Sulfate 4mg/ml Inj IVP PRN (23:42)
[2017-07-11] VITALS: BP 146/89
[2017-07-11 04:00] VITALS: BP 143/88
[2017-07-11 07:49] LABS: MEAN CORPUSCULAR HEMOGLOBIN 18.5 PG (27.0-31.0); MEAN CORPUSCULAR HGB CONC 30.4 G/DL (32.0-36.0); MEAN CORPUSCULAR VOLUME 61 FL (80-99); MEAN PLATELET VOLUME 6.5 FL (6.5-10.1); PLATELET COUNT 557 K/UL (150-450); RED BLOOD COUNT 5.24 M/UL (4.20-5.40); RED CELL DISTRIBUTION WIDTH 26.4 % (11.6-14.8); WHITE BLOOD COUNT 16.5 K/UL (4.8-10.8)
[2017-07-11 07:55] LABS: ANION GAP 14 mmol/L (5-15); CALCIUM 9.7 MG/DL (8.5-10.1); CARBON DIOXIDE 22 MMOL/L (21-32); CHLORIDE 103 MMOL/L (98-107); CREATININE 0.6 MG/DL (0.55-1.30); GLOMERULAR FILTRATION RATE > 60 mL/min (>60); POTASSIUM 3.4 MMOL/L (3.5-5.1); SODIUM 139 MMOL/L (136-145)
[2017-07-11 08:00] VITALS: BP 132/70
--- NOTE | 2017-07-11 08:56 | Diagnostic Imaging Report ---
Indication: PAIN headache Technique: Continuous helical CT scanning of the head was performed without intravenous contrast material. Axial and coronal 5 mm sections were generated. Radiation dose was minimized using automated exposure control Dose: Total Dose Length Product - DLP [address] Dose Index - CTDIvol(s) 70.38 mGy. Comparison: None Findings: The ventricular system is normal in size and configuration. There is no shift of midline structures. No abnormal extra-axial fluid collections are noted. There is no evidence of intracerebral bleeding. No other abnormal high or low density areas are noted within the brain. Visualized orbits and sinuses are unremarkable. The calvarium is intact. Impression: Normal CT scan of the head without contrast material. The CT scanner at [facility] is accredited by the [employer] and the scans are performed using protocols designed to limit radiation exposure to as low as reasonably achievable to attain images of sufficient resolution adequate for diagnostic evaluation.
[2017-07-11 09:27] LABS: ANISOCYTOSIS 2+; BAND NEUTROPHILS % (MANUAL) 0 % (0-8); BASOPHILS % (MANUAL) 0 % (0-2); EOSINOPHILS % (MANUAL) 0 % (0-3); LYMPHOCYTES % (MANUAL) 14 % (20-45); MICROCYTES 2+; NEUTROPHILS % (MANUAL) 82 % (45-75); PLATELET ESTIMATE INCREASED; PLATELET MORPHOLOGY NORMAL; TOTAL CELLS COUNTED 100
[2017-07-11 09:28] LABS: HYPOCHROMASIA 1+
--- NOTE | 2017-07-11 10:31 | Consultation ---
DATE OF CONSULTATION: 07/08/2017 HEMATOLOGY/ONCOLOGY CONSULTATION REQUESTING PHYSICIAN: Raymundo Doss M.D. REASON FOR CONSULTATION: Evaluation of anemia. IDENTIFYING DATA: Dear Dr. Doss, The patient is a pleasant 32-year-old female with past medical history significant for UTI, at this time presents with with abdominal cramping, fevers and chills and abscess. Noted to have anemia with a macrocytosis, has had a vaginal bleeding, not on any control pills. She is engaged. She has four children . Workup in the ER reviewed and noted decreased hemoglobin 6.6, leukocytosis, was noted. Hematology/Oncology is consulted for further evaluation of the patient's anemia. PAST MEDICAL HISTORY: As noted above. PAST SURGICAL HISTORY: None noted. REVIEW OF SYSTEMS: CONSTITUTIONAL: No fever, chills, or night sweats. SKIN: No rashes, bumps, or itching. HEENT: No headache, hearing or vision changes. BREASTS: No lumps, pain, or discharge. PULMONARY: No cough, sputum, or shortness of breath. GASTROINTESTINAL: No nausea, vomiting, or diarrhea. GENITOURINARY: No dysuria, frequency, or urgency. MUSCULOSKELETAL: No joint swelling, muscle pain, or trauma. . PHYSICAL EXAMINATION: GENERAL: No acute distress. VITAL SIGNS: Reviewed. PULMONARY: . EXTREMITIES: There is 1+ edema. LABORATORY AND DIAGNOSTIC DATA: WBC 7.5, hemoglobin and hematocrit and RDW of 16, increased to 25. ASSESSMENT AND RECOMMENDATIONS: 1. macrocytosis with anemia concerning for potential anemia of iron deficiency . 2. versus sickle cell . Continue iron treatment at this time as the patient is severely iron deficient as noted TIBC of . 3. Iron-deficiency anemia. We will closely monitor. . 4. bleeding in her periods, not on any control . 5. should improve with iron. 6. Nausea, vomiting, and diarrhea. 7. Marijuana use . 8. Abdominal pain with cramping. 9. Diarrhea . I appreciate the consultation. Venu Ibrahim M.D. DR: SKYE JOB#: [id number] CC:
--- NOTE | 2017-07-11 10:32 | GI Progress Note ---
Assessment/Plan Problems: (1) Nausea, vomiting, and diarrhea ICD Codes: R11.2 - Nausea with vomiting, unspecified; R19.7 - Diarrhea, unspecified SNOMED: 4619497 (2) Iron deficiency ICD Codes: E61.1 - Iron deficiency SNOMED: 90545919 (3) Symptomatic anemia ICD Codes: D64.9 - Anemia, unspecified SNOMED: 092439998 (4) Back pain ICD Codes: M54.9 - Dorsalgia, unspecified SNOMED: 976366624 Status: stable, unchanged Status Narrative Discussed with Dr. Urrutia. Assessment/Plan lipase WNL OB stool negative CT negative cdiff negative HgC negative symptomatic treatment fu stool studies, O&P >> ok for Imodium after samples collected regular diet, PO as tolerated zofran prn, compazine for persistent vomiting monitor H&H, prn transfusions H2B fu labs consider cyclic vomiting syndrome given hx of daily MJ use Subjective Subjective emesis x 1 this morning Objective Last 24 Hour Vital Signs Date Time Temp Pulse Resp B/P (MAP) Pulse Ox O2 Delivery O2 Flow Rate FiO2 07/11/17 08:00 98.0 53 16 132/70 99 07/11/17 04:00 98.1 56 20 143/88 100 Room Air 07/11/17 00:12 97.3 07/11/17 00:00 97.3 58 21 146/89 100 Room Air 07/10/17 20:00 97.0 68 20 141/91 100 Room Air 07/10/17 16:10 97.9 63 19 142/78 98 Room Air 07/10/17 12:50 98.1 60 19 135/70 99 Room Air 07/10/17 12:20 98.2 62 20 136/69 100 Room Air 07/10/17 11:50 98.2 56 20 141/75 100 Room Air 07/10/17 11:26 98.0 59 19 139/77 99 Room Air 07/10/17 11:20 97.9 57 20 133/99 97 Room Air 07/10/17 11:05 97.7 56 19 130/90 98 Room Air 07/10/17 10:50 97.9 58 20 134/89 97 Room Air 07/10/17 10:35 98.0 59 19 139/77 99 Room Air Laboratory Tests Test 10/23/17 04:45 White Blood Count 16.5 K/UL (4.8-10.8) H Red Blood Count 5.24 M/UL (4.20-5.40) Hemoglobin 9.7 G/DL (12.0-16.0) L Hematocrit 31.8 % (37.0-47.0) L Mean Corpuscular Volume 61 FL (80-99) L Mean Corpuscular Hemoglobin 18.5 PG (27.0-31.0) L Mean Corpuscular Hemoglobin Concent 30.4 G/DL (32.0-36.0) L Red Cell Distribution Width 26.4 % (11.6-14.8) H Platelet Count 557 K/UL (150-450) H Mean Platelet Volume 6.5 FL (6.5-10.1) Neutrophils (%) (Auto) % (45.0-75.0) Lymphocytes (%) (Auto) % (20.0-45.0) Monocytes (%) (Auto) % (1.0-10.0) Eosinophils (%) (Auto) % (0.0-3.0) Basophils (%) (Auto) % (0.0-2.0) Differential Total Cells Counted 100 Neutrophils % (Manual) 82 % (45-75) H Lymphocytes % (Manual) 14 % (20-45) L Monocytes % (Manual) 4 % (1-10) Eosinophils % (Manual) 0 % (0-3) Basophils % (Manual) 0 % (0-2) Band Neutrophils 0 % (0-8) Platelet Estimate Increased H Platelet Morphology Normal Hypochromasia 1+ Anisocytosis 2+ Microcytosis 2+ Sodium Level 139 MMOL/L (136-145) Potassium Level 3.4 MMOL/L (3.5-5.1) L Chloride Level 103 MMOL/L (98-107) Carbon Dioxide Level 22 MMOL/L (21-32) Anion Gap 14 mmol/L (5-15) Blood Urea Nitrogen 7 mg/dL (7-18) Creatinine 0.6 MG/DL (0.55-1.30) Estimat Glomerular Filtration Rate > 60 mL/min (>60) Glucose Level 101 MG/DL (74-106) Calcium Level 9.7 MG/DL (8.5-10.1) Human Chorionic Gonadotropin, Qual Negative Height (Feet): 5 Height (Inches): 4.00 Weight (Pounds): 212 General Appearance: WD/WN, no apparent distress, alert, obese Cardiovascular: normal rate Respiratory/Chest: normal breath sounds, no respiratory distress Abdominal Exam: normal bowel sounds, non tender, soft Extremities: normal range of motion, non-tender Holley Carcamo N.P. Jul 11, 2017 10:32
[2017-07-11] MEDS ORDERED: COMPAZINE5 MG PO (13:51)
--- NOTE | 2017-07-11 13:52 | Pulmonology Progress Note ---
Assessment/Plan Problems: (1) Nausea, vomiting, and diarrhea (2) Symptomatic anemia Assessment/Plan h/h better compazine prn dc home avoid pot. Subjective ROS Limited/Unobtainable: No Allergies: Coded Allergies: No Known Allergies (Unverified , 04/08/14) Objective Last 24 Hour Vital Signs Date Time Temp Pulse Resp B/P (MAP) Pulse Ox O2 Delivery O2 Flow Rate FiO2 07/11/17 08:00 98.0 53 16 132/70 99 07/11/17 04:00 98.1 56 20 143/88 100 Room Air 07/11/17 00:12 97.3 07/11/17 00:00 97.3 58 21 146/89 100 Room Air 07/10/17 20:00 97.0 68 20 141/91 100 Room Air 07/10/17 16:10 97.9 63 19 142/78 98 Room Air General Appearance: WD/WN HEENT: normocephalic, atraumatic Respiratory/Chest: chest wall non-tender, lungs clear Breasts: no masses Cardiovascular: normal peripheral pulses Abdomen: normal bowel sounds, soft, non tender, no scars Extremities: no clubbing Skin: no rash Microbiology Date/Time Source Procedure Growth Status 07/08/17 23:30 Anus Stool Culture - Preliminary Resulted Laboratory Tests 07/11/17 04:45: White Blood Count 16.5H, Red Blood Count 5.24, Hemoglobin 9.7L, Hematocrit 31.8L , Mean Corpuscular Volume 61L, Mean Corpuscular Hemoglobin 18.5L, Mean Corpuscular Hemoglobin Concent 30.4L, Red Cell Distribution Width 26.4H, Platelet Count 557H, Mean Platelet Volume 6.5, Neutrophils (%) (Auto) , Lymphocytes (%) (Auto) , Monocytes (%) (Auto) , Eosinophils (%) (Auto) , Basophils (%) (Auto) , Differential Total Cells Counted 100, Neutrophils % ( Manual) 82H, Lymphocytes % (Manual) 14L, Monocytes % (Manual) 4, Eosinophils % ( Manual) 0, Basophils % (Manual) 0, Band Neutrophils 0, Platelet Estimate IncreasedH, Platelet Morphology Normal, Hypochromasia 1+, Anisocytosis 2+, Microcytosis 2+, Sodium Level 139, Potassium Level 3.4L, Chloride Level 103, Carbon Dioxide Level 22, Anion Gap 14, Blood Urea Nitrogen 7, Creatinine 0.6, Estimat Glomerular Filtration Rate > 60, Glucose Level 101, Calcium Level 9.7, Human Chorionic Gonadotropin, Qual Negative Current Medications Medications (Trade) Dose Ordered Sig/Lilliana Route PRN Reason Start Time Stop Time Status Last Admin Dose Admin Acetaminophen (Tylenol) 650 mg Q4H PRN ORAL fever 07/07/17 21:30 08/06/17 21:29 Al Hydroxide/Mg Hydroxide (Mylanta II) 30 ml Q6H PRN ORAL dyspepsia 07/07/17 21:30 08/06/17 21:29 Dextrose (Dextrose 50%) STAT PRN IV Hypoglycemia 07/07/17 21:30 08/06/17 21:29 Loperamide HCl (Imodium) 2 mg Q4H PRN ORAL Diarrhea 07/08/17 17:15 08/07/17 17:14 Lorazepam (Ativan 2mg/ml 1ml) 0.5 mg Q4H PRN IV For Anxiety 07/07/17 21:30 07/14/17 21:29 07/10/17 06:12 Metoclopramide HCl (Reglan) 5 mg Q8H PRN IVP Nausea & Vomiting 07/08/17 19:30 08/07/17 19:29 07/10/17 23:42 Morphine Sulfate (Morphine Sulfate) 1 mg Q4H PRN IVP For Pain Scale 4-10 07/07/17 21:30 07/14/17 21:29 07/10/17 23:42 Ondansetron HCl (Zofran) 4 mg Q6H PRN IVP Nausea & Vomiting 07/07/17 21:30 08/06/17 21:29 07/10/17 01:24 Polyethylene Glycol (Miralax) 17 gm HSPRN PRN ORAL Constipation 07/07/17 21:30 08/06/17 21:29 Prochlorperazine (Compazine) 10 mg Q6H PRN IVP Nausea & Vomiting 07/10/17 11:00 08/09/17 10:59 07/11/17 03:53 Ranitidine HCl (Zantac) 150 mg BEDTIME ORAL 07/08/17 21:00 08/07/17 20:59 07/10/17 20:48 Sodium Chloride 1,000 ml @ 75 mls/hr [id number] IV 07/08/17 17:00 08/07/17 16:59 07/11/17 03:53 Zolpidem Tartrate (Ambien) 5 mg HSPRN PRN ORAL Insomnia 07/07/17 21:30 07/14/17 21:29 07/10/17 20:48 CHARLES JUAREZ Jul 11, 2017 13:52
--- NOTE | 2017-07-12 08:42 | General Progress Note ---
Assessment/Plan Assessment/Plan Assessment and Recs Anemia 2/2 severe iron deficiency -- on venofer --> hgb goal is >7 and has improved --> hgb electrophoresis and ss trait pending Anemia 2/2 severe menorrhagia --> obgyn specialist eval as outpatient Nausea with vomiting and diarrhea acute symptomatic anemia, requiring blood transfusion obesity possible cyclic vomiting syndrome daily marijuana user menorrhagia Subjective Date patient seen: Jul 11, 2017 Constitutional: Reports: no symptoms HEENT: Reports: no symptoms Cardiovascular: Reports: no symptoms Respiratory: Reports: no symptoms Gastrointestinal/Abdominal: Reports: nausea, vomiting Genitourinary: Reports: no symptoms Neurologic/Psychiatric: Reports: no symptoms Endocrine: Reports: no symptoms Hematologic/Lymphatic: Reports: anemia Allergies: Coded Allergies: No Known Allergies (Unverified , 04/08/14) Subjective emesis this am Objective Height (Feet): 5 Height (Inches): 4.00 Weight (Pounds): 212 General Appearance: no apparent distress EENT: PERRL/EOMI, normal ENT inspection Neck: supple Abdomen: non tender, soft Extremities: non-tender Edema: mild edema Neurologic: tensile tester II-XII grossly normal Skin: warm/dry Venu Ibrahim Jul 12, 2017 08:42
--- NOTE | 2017-07-12 10:53 | Discharge Summary ---
Discharge Summary Hospital Course Date of Admission Jul 07, 2017 at 20:06 Date of Discharge Jul 11, 2017 at 15:13 Admitting Diagnosis ANEMIA HERMINIO Pollard is a 32 year old female who was admitted on Jul 07, 2017 at 20: 06 for Anemia Hospital Course dc summary #[id number] Discharge Condition Upon Discharge: stable Discharge Disposition Patient was discharged to Home (01) Discharge Diagnoses: Richard (Lanliliana),Abby DAS Jul 12, 2017 10:53
[2017-07-12] MEDS ORDERED: FERROUS SULFAT325 MG ORAL (10:59)
[2017-07-12 16:38] LABS: SICKLE CELL SCREEN Negative (Negative)
--- NOTE | 2017-07-13 00:15 | Discharge Summary 2 SIG ---
DATE OF ADMISSION: 07/07/2017 DATE OF DISCHARGE: 07/11/2017 REASON FOR ADMISSION: 32-year-old female with one week of foul smelling of dark colored diarrhea, no alejandrina blood, admitted to yellow color vomiting, no hematemesis. The patient was unable to keep food or water down. Reported abdominal cramps. No fever. No chills. No history of abdominal surgery. No history of endoscopy or colonoscopy. No recent travel. No recent antibiotic use. Doubt any food allergy. No recent sick contacts. The patient also reported having heavy periods all her life, using about 10 pads per day and having bleeding for about 10 days. She reported exertional dyspnea and fatigue. The patient was not on any control pills. She admitted to smoking marijuana on a daily basis. Workup in the emergency department revealed hemoglobin -6.6, hematocrit -23.8 with MCV - 55. Vital signs were stable. No fever. Pulse oximetry was stable on room air. No leukocytosis. Stable lytes, LFT. Urine test was negative. Last menstrual period was June 2013. The patient was admitted for symptomatic anemia, blood transfusion, and further management. ADMITTING DIAGNOSES: 1. Nausea with vomiting and diarrhea. 2. Acute symptomatic anemia requiring blood transfusion. 3. Iron-deficiency anemia. 4. Obesity. 5. Daily marijuana use. HOSPITAL STAY: The patient was admitted to Med/Surg floor. The patient was transfused with two units of packed red blood cells. Hemoglobin up to 9.7 and hematocrit up to 31.8. Anemia workup revealed evidence of iron- deficiency anemia. The patient was started on Venofer. Stool OB x2 was negative. GI consult was requested. No shortness of breath. No chest pain. GI closely followed. CT of the abdomen and pelvis was essentially negative. The patient initially unable to tolerate diet and different type of antiemetic provided as needed. Stool for C. difficile was negative. Stool for culture was negative. No Campylobacter, Salmonella, or Shigella were identified. No fever. GI prophylaxis provided. Urine and serum tests were both negative. The patient was counseled to follow up with [facility] PHYSICAL EDUCATOR as outpatient. On 07/10 patient sustained a mechanical fall while trying to get to the bathroom . She denied loss of consciousness, dizziness, blackouts, head injury. No chest pain, no weakness, no headache, no shortness of breath. CT head revealed no acute intracranial pathology. Patient remained asymptomatic. Over night no dizziness, no loss of consciousness. On the next day patient was able to tolerate diet, no nausea, no vomiting, abdominal discomfort resolved. Hemoglobin and hematocrit remained stable. The patient presumed to likely have cyclic vomiting syndrome due to daily marijuana use. Patient was counseled to limit and try to avoid marijuana. The patient was stable for discharge. FINAL DIAGNOSES: 1. Nausea with vomiting and diarrhea. 2. Acute symptomatic anemia requiring blood transfusion. 3. Iron-deficiency anemia. 4. Menorrhagia. 5. Morbid obesity. 6. Possible cyclic vomiting syndrome. 7. Daily marijuana user. 8. s/p mechanical fall DISCHARGE MEDICATIONS: See medication reconciliation list. DISCHARGE INSTRUCTIONS: The patient was discharged home. Patient to follow up with the primary medical doctor and with ADAPT[facility] PHYSICAL EDUCATOR as outpatient. Patient was counseled to go to the nearest ED if she developed severe headaches, dizziness, vomiting, loss of consciousness , blackout. Raymundo Doss M.D. Abby RodasMichael ag DR: Senait JOB#: [id number] CC: RACHELE
[2017-07-14 11:57] LABS: HEMOGLOBIN A 67.6 % (94.0-98.0); HEMOGLOBIN A2 2.1 % (0.7-3.1); HGB C 30.3 % (0.0)
== END 2017-07-11 15:13 | disposition home or self-care (01) | DRG 663 ==
LOC: EMR 11:17 → EDBEDREQ 19:58 → 4E 20:06
PROC: 30233N1 Transfusion of Nonautologous Red Blood Cells into Peripheral Vein, Percutaneous Approach (ICD-10-PCS; principal; 2017-07-07)
DX: D62 Acute posthemorrhagic anemia (principal); D57.40 Sickle-cell thalassemia without crisis; K29.70 Gastritis, unspecified, without bleeding; D50.9 Iron deficiency anemia, unspecified; E66.9 Obesity, unspecified; F12.90 Cannabis use, unspecified, uncomplicated; N92.0 Excessive and frequent menstruation with regular cycle; R19.7 Diarrhea, unspecified; G43.A0 Cyclical vomiting, in migraine, not intractable
CPT/HCPCS: 36415; 70450; 74177; 80048; 80053; 81003; 81025; 82270; 82607; 82728; 82746; 82962; 83020; 83540; 83550; 83615; 83690; 84443; 84703; 85007; 85025; 85044; 85060; 85610; 85651; 85660; 85730; 86850; 86900; 86901; 86920; 87045; 87324; 93005; 93970; 96361; 96374; 96375; 96376; 99284; J2405; J2765

== ENCOUNTER 2018-03-23 20:32 | Emergency (ER) | payer MEDICAID, OTHER ==
[~2018-03-23] VITALS: Ht 162.6 cm; Wt 94.8 kg
[~2018-03-23 20:32] MED LIST changes: +COMPAZINE5 MG PO; +FERROUS SULFAT325 MG ORAL
[2018-03-23] MEDS ORDERED: GUMMI BEAR MUL1 EACH PO (20:48)
[2018-03-23 21:00] VITALS: BP 123/69
--- NOTE | 2018-03-23 21:09 | Emergency Room Report ---
History of Present Illness General Chief Complaint: Generalized Weakness Source: Patient Present Illness HPI Is a 32-year-old female with a history of sickle cell trait. She also has very heavy menstrual bleeding. She presents with chief complaint of weakness. She was admitted here last year and needed blood transfusion. She was supposed be on iron supplements but she hasn't taken over the last few months. Complaining of increasing weakness and distant exertion for the last couple months. Denies any fever or chills. Denies any nausea vomiting. Worse with exertion. Better with rest. No chest pain. She said her menstrual period lasted a week and she goes through her whole 36 heavy absorbent pads. Allergies: Coded Allergies: No Known Allergies (Unverified , 04/08/14) Patient History Past Medical History: see triage record, old chart reviewed Past Surgical History: none Pertinent Family History: none Last Menstrual Period: 03/02/2018 Now: No - 04/2016 hysterectomy Immunizations: other Reviewed Nursing Documentation: PMH: Agreed; PSxH: Agreed Nursing Documentation-PMH Hx Cancer: No Hx Gastrointestinal Problems: No Hx Neurological Problems: Yes Hx Headaches: Yes Review of Systems Constitutional: Reports: malaise, weakness Eye: Denies: eye pain, blurred vision ENT: Denies: ear pain, nose congestion, throat swelling Respiratory: Denies: cough, shortness of breath Cardiovascular: Denies: chest pain, palpitations Gastrointestinal: Denies: abdominal pain, diarrhea, nausea, vomiting Musculoskeletal: Denies: back pain, joint pain Skin: Denies: rash Neurological: Denies: headache, numbness Endocrine: Denies: increased thirst, increased urine Hematologic/Lymphatic: Denies: easy bruising All Other Systems: negative except mentioned in HPI Physical Exam Vital Signs Date Time Temp Pulse Resp B/P (MAP) Pulse Ox O2 Delivery O2 Flow Rate FiO2 03/23/18 20:42 98.7 89 16 127/71 100 Room Air 98.8 vitals normal Sp02 EP Interpretation: reviewed, normal General Appearance: well appearing, no apparent distress, alert Head: normocephalic, atraumatic Eyes: bilateral eye PERRL, bilateral eye EOMI, bilateral eye other - pale conjunctiva ENT: hearing grossly normal, normal pharynx Neck: full range of motion, supple, no meningismus Respiratory: chest non-tender, lungs clear, normal breath sounds Cardiovascular #1: regular rate, rhythm, no murmur Gastrointestinal: normal bowel sounds, non tender, no mass, no organomegaly, no bruit, non-distended Musculoskeletal: back normal, gait/station normal, normal range of motion Psychiatric: mood/affect normal Skin: warm/dry Medical Decision Making Diagnostic Impression: Primary Impression: Anemia Qualified Codes: D50.0 - Iron deficiency anemia secondary to blood loss ( chronic) Additional Impression: Menorrhagia with regular cycle ER Course Patient presents with weakness secondary to chronic blood loss causing anemia. This is more likely to be due to her heavy menstrual cycle rather then sickle cell trait. She is otherwise stable. We'll discharge home after blood transfusion here. Told to continue her iron and will awoke with social organization professor. She may benefit from control pill to regulate her cycle. Lab Results Impression labs with anemia Last Vital Signs Date Time Temp Pulse Resp B/P (MAP) Pulse Ox O2 Delivery O2 Flow Rate FiO2 7/5/18 20:42 98.7 89 16 127/71 100 Room Air 98.8 Status: improved Disposition: HOME, SELF-CARE Condition: Stable Additional Instructions: Continue with your iron pills. Increase intake of dark leafy green vegetables. Recommend referral to see a social organization professor regarding her heavy menstrual flow. Follow-up with your doctor in a week. Return if worse. SOLEDAD DAVISON M.D. Mar 23, 2018 21:09
[2018-03-23 21:45] LABS: HEMATOCRIT 24.5 % (37.0-47.0); HEMOGLOBIN 7.4 G/DL (12.0-16.0); MEAN CORPUSCULAR VOLUME 59 FL (80-99); PLATELET COUNT 280 K/UL (150-450); RED BLOOD COUNT 4.16 M/UL (4.20-5.40); RED CELL DISTRIBUTION WIDTH 16.1 % (11.6-14.8); WHITE BLOOD COUNT 9.3 K/UL (4.8-10.8)
[2018-03-23 21:47] LABS: APPEARANCE,URINE CLEAR; BILIRUBIN, URINE NEGATIVE (NEGATIVE); GLUCOSE, URINE (UA) NEGATIVE (NEGATIVE); KETONES,URINE NEGATIVE (NEGATIVE); LEUKOCYTE ESTERASE ,URINE 2+ (NEGATIVE); NITRITE,URINE NEGATIVE (NEGATIVE); PH,URINE 6 (4.5-8.0); PROTEIN,URINE NEGATIVE (NEGATIVE); UROBILINOGEN,URINE 1 MG/DL (0.0-1.0)
[2018-03-23 21:50] LABS: COLOR,URINE YELLOW
[2018-03-23 21:57] LABS: ANION GAP 5 mmol/L (5-15); BLOOD UREA NITROGEN 10 mg/dL (7-18); CALCIUM 8.6 MG/DL (8.5-10.1); CARBON DIOXIDE 26 MMOL/L (21-32); CHLORIDE 106 MMOL/L (98-107); CREATININE 0.7 MG/DL (0.55-1.30); POTASSIUM 3.6 MMOL/L (3.5-5.1); SODIUM 137 MMOL/L (136-145)
[2018-03-23 22:00] VITALS: BP 123/68
[2018-03-23 23:05] VITALS: BP 109/56
[2018-03-24 00:05] VITALS: BP 118/68
[2018-03-24 00:50] VITALS: BP 118/68
== END 2018-03-24 00:50 | disposition home or self-care (01) ==
LOC: EMR 21:30
DX: D50.0 Iron deficiency anemia secondary to blood loss (chronic) (principal); N92.0 Excessive and frequent menstruation with regular cycle; R53.1 Weakness
CPT/HCPCS: 36415; 80048; 81003; 81025; 85007; 85025; 86850; 86900; 86901; 86920; 99282; P9016

== ENCOUNTER 2019-07-31 14:08 | Emergency (ER) | payer MEDICAID ==
[~2019-07-31] VITALS: Ht 162.6 cm; Wt 95.7 kg
[~2019-07-31 14:08] MED LIST changes: +CEFPODOXIME PR100 MG PO; +GUMMI BEAR MUL1 EACH PO
[2019-07-31 14:16] VITALS: BP 146/83
--- NOTE | 2019-07-31 14:17 | NUR ---
ED Nurse Note: Pt walked in ED from home, pt. states smashed her left 3rd digit from a car door today. Bleeding and bruising noted. No SOB; VSS.
--- NOTE | 2019-07-31 14:26 | NUR ---
ED Nurse Note: ERMD at bedside
[2019-07-31] MEDS ORDERED: Lidocaine 1% MPF 10mg/ml 5ml INJ ONE (14:30)
--- NOTE | 2019-07-31 14:33 | NUR ---
ED Nurse Note: xray at bedside
--- NOTE | 2019-07-31 14:54 | Diagnostic Imaging Report ---
Indication: pain in finger. trauma Findings: 3 views of the left third finger were obtained. No acute fractures, malalignment, erosions, or periosteal reaction are seen. Soft tissues are unremarkable. Impression: No acute findings.
--- NOTE | 2019-07-31 15:26 | NUR ---
Note nargis in EDM - 07/31/19 at 1528 by JULIETTE ER DISCHARGE NOTE: Patient is cleared to be discharged per ERMD, pt is aox4, on room air, with stable vital signs. pt was given dc and prescription instructions, pt was able to verbalize understanding, pt id band removed without complications. pt is able to ambulate with steady gait. pt took all belongings.
--- NOTE | 2019-07-31 15:47 | Emergency Room Report ---
History of Present Illness General Chief Complaint: Upper Extremity Injury Source: Patient Present Illness HPI 34 YO Female presents to the ED C/o 06/28 in severity pain, tenderness and bleeding to the LMF. Pt. reports s/p closing her finger in the car door [employer]. Pt. states she is not UTD with tdap. She reports palpation or attempts to move the affected finger exacerbate her pain. She denies any relieving factors at this time. Pt. states she is right hand dominant. She reports bruising under the left middle fingernail. She denies loss of gross motor movement or sensation in the affected extremity. Allergies: Coded Allergies: No Known Allergies (Unverified , 04/08/14) Patient History Past Medical History: see triage record Past Surgical History: none Pertinent Family History: none Now: No Reviewed Nursing Documentation: PMH: Agreed; PSxH: Agreed Nursing Documentation-PMH Past Medical History: No History, Except For Hx Cardiac Problems: No - anemia Hx Cancer: No Hx Gastrointestinal Problems: Yes - abdominal pain, vomiting, diarrhea Hx Neurological Problems: No Hx Headaches: Yes Review of Systems All Other Systems: negative except mentioned in HPI Physical Exam Vital Signs Date Time Temp Pulse Resp B/P (MAP) Pulse Ox O2 Delivery O2 Flow Rate FiO2 07/31/19 14:11 98.4 86 19 146/83 (104) 100 Room Air Sp02 EP Interpretation: reviewed, normal General Appearance: no apparent distress, alert, GCS 15, non-toxic Head: normocephalic, atraumatic Eyes: bilateral eye normal inspection, bilateral eye PERRL ENT: hearing grossly normal, normal voice Neck: full range of motion Respiratory: lungs clear, normal breath sounds, speaking full sentences Cardiovascular #1: regular rate, rhythm, normal capillary refill Musculoskeletal: gait/station normal, normal range of motion - with pain. , swelling - DIP of the LMF, tender - TTP at the DIP of the LMF, TTP to the nail of the LMF. pain with flexion of the LMF, pt. able to bend after digital block Neurologic: alert, oriented x3, responsive, motor strength/tone normal, sensory intact, speech normal, grossly normal Psychiatric: judgement/insight normal Skin: laceration - 0.4cm laceration to the lateral aspect of the LMF. no obvious fb. bleeding controlled at this time. , other - subungual hematoma of the LMF Procedures Laceration/Wound Repair Laceration/Wound Repair : Consent: Verbal Wound Location: upper extremity - LMF Wound's Depth, Shape: superficial Wound Length (cm): 0 Wound Explored: clean Irrigated w/ Saline (ccs): 50 Wound Repaired With: Dermabond Sterile Dressing Applied?: Yes Splint Applied?: Yes Type of Splint Applied: finger splint Sling Applied?: No Patient Tolerated: Well Complications: None Nail Trepanation Nail Trepanation : Consent: Verbal Nail Trepanation Location: LMF Method of Drainage: nail cauterized Sterile Dressing Applied: Yes Finger Splint: Yes Patient Tolerated: Well Complications: None Medical Decision Making PA Attestation Dr. Sun is my supervising Physician whom patient management has been discussed with. Diagnostic Impression: Primary Impression: Crushing injury of finger of left hand Additional Impressions: Laceration Subungual hematoma of finger of left hand Qualified Codes: S60.10XA - Contusion of unspecified finger with damage to nail, initial encounter ER Course 34 YO Female presents to the ED C/o 06/28 in severity pain, tenderness and bleeding to the LMF. Pt. reports s/p closing her finger in the car door [employer]. Pt. states she is not UTD with tdap. She reports palpation or attempts to move the affected finger exacerbate her pain. She denies any relieving factors at this time. Pt. states she is right hand dominant. She reports bruising under the left middle fingernail. She denies loss of gross motor movement or sensation in the affected extremity. Ddx considered but are not limited to Fracture, dislocation, contusion, Sprain/ Strain/Spasm, Subungual hematoma, laceration, retained foreign body, tendon injury, crush injury/compartment syndrome just to name a few Vital signs: are WNL, pt. is afebrile H&PE are most consistent with musculoskeletal injury will perform imaging to r/ o fractures/dislocations. ORDERS: - X-ray left fingers 3 views - negative for fx, Dislocation, or significant soft tissue injury, per preliminary read in ED, and signed by AL Minor , my supervising physician has reviewed, and agrees with my interpretation. ED INTERVENTIONS: - Tdap Vaccination - Digital block -Tylenol 650mg PO - Finger Splint applied to the left middle finger by body technician. Pt. remains neurovascularly intact. DISCHARGE: At this time pt. is stable for d/c to home. Will provide printed patient care instructions, and any necessary prescriptions. Care plan and follow up instructions have been discussed with the patient prior to discharge. Other X-Ray Diagnostic Results Other X-Ray Diagnostic Results : X-Ray ordered: Left Fingers # of Views/Limited Vs Complete: 3 View Indication: Pain EP Interpretation: Yes PA Xray: Interpretation reviewed, by supervising MD, and agrees with findings. Interpretation: no dislocation, no soft tissue swelling, no fractures Electronically Signed by: Berkley Minor PA-C Last Vital Signs Date Time Temp Pulse Resp B/P (MAP) Pulse Ox O2 Delivery O2 Flow Rate FiO2 07/31/19 14:16 98.4 19 146/83 100 Room Air 07/31/19 14:11 86 Disposition: HOME, SELF-CARE Condition: Stable Scripts Acetaminophen (Acetaminophen) 500 Mg Tablet 500 MG ORAL Q6HR for PAIN, #20 TAB Prov: Berkley Minor 07/31/19 Referrals[facility] (PCP) Patient Instructions: Crush Injury, Fingers or Toes, [id number], Nonsutured Laceration Care Berkley Minor Jul 31, 2019 15:47
[2019-07-31] MEDS ORDERED: ACETAMINOPHEN500 M5 ORAL (15:54)
[2019-07-31] MEDS ORDERED: Tetanus/Diptheria/Pertussis IM ONE (16:15)
--- NOTE | 2019-07-31 16:20 | NUR ---
ER DISCHARGE NOTE: Patient is cleared to be discharged per ERMD, pt is aox4, on room air, with stable vital signs. pt was given dc and prescription instructions, pt was able to verbalize understanding, pt id band removed without complications. pt is able to ambulate with steady gait, accompanied by . pt took all belongings.
[2019-07-31 16:21] VITALS: BP 128/82
== END 2019-07-31 16:20 | disposition home or self-care (01) ==
LOC: EMR 14:50
DX: S67.193A Crushing injury of left middle finger, initial encounter (principal); S60.10XA Contusion of unspecified finger with damage to nail, initial encounter; S61.213A Laceration without foreign body of left middle finger without damage to nail, initial encounter; Z23 Encounter for immunization; W23.0XXA Caught, crushed, jammed, or pinched between moving objects, initial encounter; Y92.9 Unspecified place or not applicable
CPT/HCPCS: 11750; 12001; 29130; 73140; 90471; 90715; Z7502; 99283

== ENCOUNTER 2020-03-13 19:14 | Emergency (ER) | payer MEDICAID ==
[~2020-03-13] VITALS: Ht 165.1 cm; Wt 90.7 kg
[~2020-03-13 19:14] MED LIST changes: +ACETAMINOPHEN500 M5 ORAL
[2020-03-13 19:35] VITALS: BP 141/80
--- NOTE | 2020-03-13 19:35 | NUR ---
ED Nurse Note: Pt walked into ED from home for c/o abdominal pain, N/V since 03/09/20. Pt believed to have food poisioning and thought the pain, n/v would subside but pt has had no relief since. Pt has not been able to tolerate fluids or food. Pt had episode of vomiting in the ED. Pt denies cough, SOB, fever. Pt is breathing normal and unlabored. IV line established, blood drawn and sent to lab. Will continue to monitor.
[2020-03-13] MEDS ORDERED: Ketorolac 30mg Inj IV ONE (19:45)
[2020-03-13 20:10] LABS: HEMATOCRIT 24.7 % (37.0-47.0); HEMOGLOBIN 7.1 G/DL (12.0-16.0); MEAN CORPUSCULAR VOLUME 54 FL (80-99); PLATELET COUNT 355 K/UL (150-450); RED BLOOD COUNT 4.59 M/UL (4.20-5.40); RED CELL DISTRIBUTION WIDTH 18.1 % (11.6-14.8)
[2020-03-13 20:18] LABS: ANION GAP 14 mmol/L (5-15); BLOOD UREA NITROGEN 7 mg/dL (7-18); CALCIUM 9.2 MG/DL (8.5-10.1); CARBON DIOXIDE 24 MMOL/L (21-32); CHLORIDE 101 MMOL/L (98-107); CREATININE 0.8 MG/DL (0.55-1.30); SODIUM 139 MMOL/L (136-145)
[2020-03-13 20:23] LABS: ALANINE AMINOTRANSFERASE 10 U/L (12-78); ALBUMIN 4.2 G/DL (3.4-5.0); ALKALINE PHOSPHATASE 61 U/L (46-116); APPEARANCE,URINE SLIGHTLY CLOUDY; ASPARTATE AMINO TRANSFERASE 12 U/L (15-37); BILIRUBIN, URINE NEGATIVE (NEGATIVE); BILIRUBIN,TOTAL 0.7 MG/DL (0.2-1.0); GLUCOSE, URINE (UA) NEGATIVE (NEGATIVE); KETONES,URINE 4+ (NEGATIVE); LEUKOCYTE ESTERASE ,URINE 1+ (NEGATIVE); NITRITE,URINE NEGATIVE (NEGATIVE); PH,URINE 7 (4.5-8.0); PROTEIN,URINE 3+ (NEGATIVE); UROBILINOGEN,URINE 4 MG/DL (0.0-1.0)
[2020-03-13 20:26] LABS: COLOR,URINE YELLOW
[2020-03-13] MEDS ORDERED: Omnipaque-300 100ml vial INJ PRN (20:30)
[2020-03-13 20:42] LABS: INR 1.1 (0.9-1.1)
--- NOTE | 2020-03-13 20:44 | Emergency Room Report ---
History of Present Illness General Chief Complaint: Nausea, Vomiting, and Diarrhea Present Illness HPI 35-year-old female with history of thalassemia major here complaining of sudden onset of diffuse abdominal pain and multiple bouts of nonbloody emesis after eating rare steak few days ago. Patient denies any fever and chills, complains of diarrhea. Reports that the meal was home cooked however it was rare. Patient reports that she has history of thalassemia major and she usually goes to hospitals once a year and gets transfused and admitted. Patient does not have a biztalk consultant to follow-up with. Reports that she started feeling dizzy after multiple bouts of nonbloody emesis. Patient showed me a lot of bile that she vomited. Denies any history of abdominal surgeries. Denies any drug use, tobacco smoke, alcohol intake. Denies . Denies any excessive vaginal bleeding. 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 (Giles Jerry) Patient History Past Medical History: see triage record Past Surgical History: none Pertinent Family History: none Last Menstrual Period: 02/27 Now: No : 6 Para: 4 Immunizations: UTD Reviewed Nursing Documentation: PMH: Agreed; PSxH: Agreed (Giles Jerry) Nursing Documentation-PMH Hx Cardiac Problems: No - anemia Hx Cancer: No Hx Gastrointestinal Problems: Yes - abdominal pain, vomiting, diarrhea Hx Neurological Problems: No Hx Headaches: Yes (Giles Jerry) Review of Systems All Other Systems: negative except mentioned in HPI (Giles Jerry) Physical Exam Vital Signs Date Time Temp Pulse Resp B/P (MAP) Pulse Ox O2 Delivery O2 Flow Rate FiO2 03/13/20 19:25 98.8 78 20 141/80 (100) 99 Room Air Sp02 EP Interpretation: reviewed, normal General Appearance: no apparent distress, alert, GCS 15, non-toxic Head: normocephalic, atraumatic Eyes: bilateral eye normal inspection, bilateral eye PERRL ENT: hearing grossly normal, normal pharynx, no angioedema, normal voice Neck: full range of motion, supple/symm/no masses Respiratory: chest non-tender, lungs clear, normal breath sounds, no rhonchi, no wheezing, speaking full sentences Cardiovascular #1: regular rate, rhythm, no edema, no murmur Cardiovascular #2: 2+ carotid (R), 2+ carotid (L), 2+ radial (R), 2+ radial (L) , 2+ dorsalis pedis (R), 2+ dorsalis pedis (L) Gastrointestinal: normal bowel sounds, non tender, soft, no mass, no organomegaly, no peritonitis, non-distended, no guarding, no hernia, no pulsatile mass, no rebound Rectal: deferred Genitourinary: no CVA tenderness Musculoskeletal: back normal, normal range of motion, no calf tenderness, gait/ station normal, non-tender Neurologic: alert, motor strength/tone normal, oriented x3, sensory intact, responsive, speech normal Psychiatric: judgement/insight normal, memory normal, mood/affect normal, no suicidal/homicidal ideation Skin: no rash Lymphatic: no adenopathy (Giles Jerry) Medical Decision Making PA Attestation All diagnoses and treatment plans were reviewed and discussed with my supervising physician Dr. Wright (Giles Jerry) PA Attestation I participated in the care of this patient along with AL Morfin Briefly, this is a 34-year-old female presenting for vomiting, diarrhea lightheadedness. She has a history of thalassemia major but does not follow with hematology. She is periodically transfused whenever she presents to the emergency department. No transfusions recently. She reports eating some raw steak several days ago and has been having vomiting and diarrhea since. Denies fever. Labs show hemoglobin of 7.1, white count within normal limits, renal function, liver studies within normal limits. Possible urinary tract infection though many squamous cells make it difficult to interpret. Dose of Rocephin was given. CT of the abdomen was performed showing some evidence of colitis, likely inflammatory. Will require transfusion and admission. Per insurance plan, the patient will be transferred to [facility]. She is in stable condition and stable for transfer. (Ruy Wright MD) Diagnostic Impression: Primary Impression: Symptomatic anemia Additional Impressions: UTI (urinary tract infection) Colitis ER Course 35-year-old female with history of thalassemia major here complaining of sudden onset of diffuse abdominal pain and multiple bouts of nonbloody emesis after eating rare steak few days ago. Patient denies any fever and chills, complains of diarrhea. Reports that the meal was home cooked however it was rare. Patient reports that she has history of thalassemia major and she usually goes to hospitals once a year and gets transfused and admitted. Patient does not have a biztalk consultant to follow-up with. Reports that she started feeling dizzy after multiple bouts of nonbloody emesis. Patient showed me a lot of bile that she vomited. Denies any history of abdominal surgeries. Denies any drug use, tobacco smoke, alcohol intake. Denies . Denies any excessive vaginal bleeding. Ddx considered but are not limited to: appendicitis, cholecystis, gastritis, gastroenteritis, UTI, pyelonephritis, SBO, diverticulitis, influenza with GI manifestation, UT, complication with Vital signs: are WNL, pt. is afebrile H&PE are most consistent with: Symptomatic anemia and dehydration, UTI, inflammatory colitis ORDERS: abdominal CT, abdominal pain set, ED INTERVENTIONS: Zofran, Pepcid, NS bolus Patient was admitted with diagnosis of symptomatic anemia, dehydration to [facility] under supervision of : Kyle pt stable at time of admission (Giles Jerry) Laboratory Tests Test 03/13/20 19:44 White Blood Count 9.0 K/UL (4.8-10.8) Red Blood Count 4.59 M/UL (4.20-5.40) Hemoglobin 7.1 G/DL (12.0-16.0) L Hematocrit 24.7 % (37.0-47.0) L Mean Corpuscular Volume 54 FL (80-99) L Mean Corpuscular Hemoglobin 15.6 PG (27.0-31.0) L Mean Corpuscular Hemoglobin Concent 29.0 G/DL (32.0-36.0) L Red Cell Distribution Width 18.1 % (11.6-14.8) H Platelet Count 355 K/UL (150-450) Mean Platelet Volume 6.6 FL (6.5-10.1) Neutrophils (%) (Auto) % (45.0-75.0) Lymphocytes (%) (Auto) % (20.0-45.0) Monocytes (%) (Auto) % (1.0-10.0) Eosinophils (%) (Auto) % (0.0-3.0) Basophils (%) (Auto) % (0.0-2.0) Differential Total Cells Counted 100 Neutrophils % (Manual) 88 % (45-75) H Lymphocytes % (Manual) 11 % (20-45) L Monocytes % (Manual) 0 % (1-10) L Eosinophils % (Manual) 1 % (0-3) Basophils % (Manual) 0 % (0-2) Band Neutrophils 0 % (0-8) Platelet Estimate Adequate Platelet Morphology Normal Polychromasia 1+ Hypochromasia 3+ Anisocytosis 2+ Spherocytes 1+ Target Cells 1+ Prothrombin Time 11.8 SEC (9.30-11.50) H Prothrombin Time INR 1.1 (0.9-1.1) Activated Partial Thromboplast Time 25 SEC (23-33) Urine Color Yellow Urine Appearance Slightly cloudy Urine pH 7 (4.5-8.0) Urine Specific [place] 1.010 (1.005-1.035) Urine Protein 3+ (NEGATIVE) H Urine Glucose (UA) Negative (NEGATIVE) Urine Ketones 4+ (NEGATIVE) H Urine Blood 1+ (NEGATIVE) H Urine Nitrite Negative (NEGATIVE) Urine Bilirubin Negative (NEGATIVE) Urine Urobilinogen 4 MG/DL (0.0-1.0) H Urine Leukocyte Esterase 1+ (NEGATIVE) H Urine RBC 5-10 /HPF (0 - 2) H Urine WBC 10-15 /HPF (0 - 2) H Urine Squamous Epithelial Cells Moderate /LPF (NONE/OCC) H Urine Bacteria Few /HPF (NONE) Urine HCG, Qualitative Negative (NEGATIVE) Sodium Level 139 MMOL/L (136-145) Potassium Level 3.0 MMOL/L (3.5-5.1) L Chloride Level 101 MMOL/L (98-107) Carbon Dioxide Level 24 MMOL/L (21-32) Anion Gap 14 mmol/L (5-15) Blood Urea Nitrogen 7 mg/dL (7-18) Creatinine 0.8 MG/DL (0.55-1.30) Estimated Glomerular Filtration Rate > 60 mL/min (>60) Glucose Level 115 MG/DL (74-106) H Calcium Level 9.2 MG/DL (8.5-10.1) Total Bilirubin 0.7 MG/DL (0.2-1.0) Aspartate Amino Transferase (AST) 12 U/L (15-37) L Alanine Aminotransferase (ALT) 10 U/L (12-78) L Alkaline Phosphatase 61 U/L (46-116) Total Protein 8.6 G/DL (6.4-8.2) H Albumin 4.2 G/DL (3.4-5.0) Globulin 4.4 g/dL Albumin/Globulin Ratio 1.0 (1.0-2.7) Lipase 95 U/L (73-393) Urine Opiates Screen Negative (NEGATIVE) Urine Barbiturates Screen Negative (NEGATIVE) Phencyclidine (PCP) Screen Negative (NEGATIVE) Urine Amphetamines Screen Negative (NEGATIVE) Urine Benzodiazepines Screen Negative (NEGATIVE) Urine Cocaine Screen Negative (NEGATIVE) Urine Marijuana (THC) Screen Positive (NEGATIVE) H (Ruy Wright MD) CT/MRI/US Diagnostic Results CT/MRI/US Diagnostic Results : Imaging Test Ordered: CT abd pelvis with contrast Impression Lung bases: Unremarkable. No mass. No consolidation. ABDOMEN: Liver: Unremarkable. No mass. Gallbladder and bile ducts: Unremarkable. No calcified stones. No ductal dilation. Pancreas: Unremarkable. No mass. No ductal dilation. Spleen: Unremarkable. No splenomegaly. Adrenals: Unremarkable. No mass. Kidneys and ureters: Unremarkable. No solid mass. No hydronephrosis. Stomach and bowel: Diffuse colonic nondistention with possible diffuse colonic mild wall thickening; this could be secondary to nondistention or could represent an infectious or inflammatory colitis in the proper context. PELVIS: Appendix: No findings to suggest acute appendicitis. Bladder: Unremarkable. No mass. Reproductive: Unremarkable as visualized. ABDOMEN and PELVIS: Intraperitoneal space: Unremarkable. No free air. No significant fluid collection. Bones/joints: No acute fracture. No dislocation. Soft tissues: Unremarkable. Vasculature: Unremarkable. No abdominal aortic aneurysm. Lymph nodes: Unremarkable. No enlarged lymph nodes. IMPRESSION: 1. Diffuse colonic nondistention with possible diffuse colonic mild wall thickening; this could be secondary to nondistention or could represent an infectious or inflammatory colitis in the proper context. 2. Otherwise no acute abnormality definitively identified to account for patient presentation. 3. Otherwise unremarkable study. (Giles Jerry) CT/MRI/US Diagnostic Results : Impression IMPRESSION: 1. Diffuse colonic nondistention with possible diffuse colonic mild wall thickening; this could be secondary to nondistention or could represent an infectious or inflammatory colitis in the proper context. 2. Otherwise no acute abnormality definitively identified to account for patient presentation. 3. Otherwise unremarkable study. Dictated By: Ino Mcadams MD Electronically Signed By: Ino Mcadams MD Signed Date/Time 03/13/202119 CC: Giles Jerry (Ruy Wright MD) Last Vital Signs Date Time Temp Pulse Resp B/P (MAP) Pulse Ox O2 Delivery O2 Flow Rate FiO2 03/13/20 19:25 98.8 78 20 141/80 (100) 99 Room Air (Giles Jerry) Disposition: SHORT-TERM HOSP Condition: Stable Referrals: [facility] (PCP) Giles Jerry Mar 13, 2020 20:44 Ruy Wright MD Mar 13, 2020 21:56
[2020-03-13] MEDS ORDERED: cefTRIAXone 1 GM in NS 55 ML IVPB ONE (20:45)
--- NOTE | 2020-03-13 20:50 | NUR ---
ED Nurse Note: Pt taken to CT.
--- NOTE | 2020-03-13 21:10 | NUR ---
ED Nurse Note: Pt returned from CT. Pt had episode of vomiting in CT and reports nausea still. ERMD aware.
--- NOTE | 2020-03-13 21:21 | Diagnostic Imaging Report ---
EXAM: CT Abdomen and Pelvis With Intravenous Contrast CLINICAL HISTORY: PAIN TECHNIQUE: Axial computed tomography images of the abdomen and pelvis with intravenous contrast. CTDI is 10 mGy and DLP is 501 mGy-cm. One or more of the following dose reduction techniques were used: automated exposure control, adjustment of the mA and/or kV according to patient size, use of iterative reconstruction technique. Coronal and sagittal reformatted images were created and reviewed. COMPARISON: 07/09/17 FINDINGS: Lung bases: Unremarkable. No mass. No consolidation. ABDOMEN: Liver: Unremarkable. No mass. Gallbladder and bile ducts: Unremarkable. No calcified stones. No ductal dilation. Pancreas: Unremarkable. No mass. No ductal dilation. Spleen: Unremarkable. No splenomegaly. Adrenals: Unremarkable. No mass. Kidneys and ureters: Unremarkable. No solid mass. No hydronephrosis. Stomach and bowel: Diffuse colonic nondistention with possible diffuse colonic mild wall thickening; this could be secondary to nondistention or could represent an infectious or inflammatory colitis in the proper context. PELVIS: Appendix: No findings to suggest acute appendicitis. Bladder: Unremarkable. No mass. Reproductive: Unremarkable as visualized. ABDOMEN and PELVIS: Intraperitoneal space: Unremarkable. No free air. No significant fluid collection. Bones/joints: No acute fracture. No dislocation. Soft tissues: Unremarkable. Vasculature: Unremarkable. No abdominal aortic aneurysm. Lymph nodes: Unremarkable. No enlarged lymph nodes. IMPRESSION: 1. Diffuse colonic nondistention with possible diffuse colonic mild wall thickening; this could be secondary to nondistention or could represent an infectious or inflammatory colitis in the proper context. 2. Otherwise no acute abnormality definitively identified to account for patient presentation. 3. Otherwise unremarkable study.
[2020-03-13 21:45] VITALS: BP 130/57
--- NOTE | 2020-03-13 22:00 | NUR ---
ED Nurse Note: Pt had another episode of vomiting, ERMD aware. Will carry out medication order.
[2020-03-13] MEDS ORDERED: Metoclopramide 10mg/2ml Inj IVP ONE (22:15)
[2020-03-13] MEDS ORDERED: DiphenhydrAMINE 50mg/ml Inj IVP ONE (22:15)
--- NOTE | 2020-03-13 23:30 | NUR ---
ED Nurse Note: Report given to ROJELIO Chacon at [facility]. Pt is resting in bed with eyes closed, has not had episode of vomiting since approx 2200. Pt VSS. Awaiting on transport.
[2020-03-14 00:10] VITALS: BP 122/73
--- NOTE | 2020-03-14 00:10 | NUR ---
ED Nurse Note: Pt is stable for transport at this time per ERMD. Pt being transported to [facility] via [facility] by [facility] ambulance BLS unit [id number]. Pt is aaox4, breathing is normal and vital signs are stable. Pt took all belongings. Report given to EMS crew. Pt IV is intact.
== END 2020-03-14 00:10 | disposition short-term general hospital (02) ==
LOC: EMR 20:02
DX: D64.9 Anemia, unspecified (principal); N39.0 Urinary tract infection, site not specified; K52.9 Noninfective gastroenteritis and colitis, unspecified; E86.0 Dehydration
CPT/HCPCS: 36415; 74177; 80053; 80307; 81003; 81025; 83690; 85007; 85025; 85610; 85730; 86850; 86900; 86901; 86920; 87086; 87181; 96361; 96365; 96375; 96376; J0696; J1200; J1885; J2405; J2765; J7030; Q9967; S0028; Z7502; 99285